=== PATIENT | male | born 1945 | race Two or more races ===

== ENCOUNTER 2023-07-19 07:08 | Day surgery (SDC) | payer OTHER ==
[2023-07-19] VITALS (8 sets, daily range): BP systolic 107–132; BP diastolic 76–90; PULSE 87–89; RESP 15–21; TEMP 98.3; O2SAT 93–98
[~2023-07-19] VITALS: Ht 172.7 cm; Wt 83.0 kg
[~2023-07-19 07:08] MED LIST: AMLO1TAB22 PO; CHOL50007 PO; FINA5TAB4 PO; LEVO50TA7 PO; LISI40TA16 PO; POM; SIMV5TAB14 PO; TRAZ-181 PO; VITA400T4 PO
[2023-07-19] MEDS ORDERED: IODIXANOL 320MG/ML 100ML BTL IV ONE ×2 (07:34→08:24)
[2023-07-19] MEDS ORDERED: LIDOCAINE 2%HCL (LOCAL ANESTH.) INJ 20ML MDV ONE (07:35)
[2023-07-19] MEDS ORDERED: ANGIOMAX 250 MG VIAL IV ONE (08:09)
[2023-07-19] MEDS ORDERED: VERAPAMIL 2.5MG/ML INJ 2ML VIAL IV ONE (08:09)
[2023-07-19] MEDS ORDERED: HEPARIN SODIUM (PORCINE) 5000 UNITS/ML 1ML VIAL ONE (08:09)
[2023-07-19] MEDS ORDERED: fentaNYL CITRATE 100 MCG/2 ML VL ONE (08:09)
[2023-07-19] MEDS ORDERED: MIDAZOLAM HCL 2MG/2ML 2ml VIAL (1mg/ml) ONE (08:10)
[2023-07-19] MEDS ORDERED: SODIUM CHL 0.9% 0 ML ONE (08:10)
== END 2023-07-19 11:22 | disposition home or self-care (01) ==
LOC: CATH 07:08
PROVIDERS: ATTEND Internal Medicine Cardiovascular Disease
DX: I25.10 Atherosclerotic heart disease of native coronary artery without angina pectoris (principal); I25.5 Ischemic cardiomyopathy; R94.39 Abnormal result of other cardiovascular function study; I27.20 Pulmonary hypertension, unspecified; R06.09 Other forms of dyspnea; E11.9 Type 2 diabetes mellitus without complications; I10 Essential (primary) hypertension; E78.5 Hyperlipidemia, unspecified; E03.9 Hypothyroidism, unspecified; I25.2 Old myocardial infarction; Z98.890 Other specified postprocedural states; Z79.01 Long term (current) use of anticoagulants; Z79.82 Long term (current) use of aspirin; Z79.84 Long term (current) use of oral hypoglycemic drugs
CPT/HCPCS: 93460; C1725; C1757; C1769; C1894; J1644; J2250; J3010; J7030; Q9967; 99152

== ENCOUNTER 2025-08-10 10:41 | Inpatient (IN) | payer OTHER ==
[~2025-08-10] VITALS: Ht 172.7 cm; Wt 85.0 kg
--- NOTE | 2025-08-10 11:29 | ECG ---
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
--- NOTE | 2025-08-10 12:11 | DVH ---
CLINICAL HISTORY: sob TECHNIQUE: Single view of the chest was obtained. COMPARISON: None FINDINGS: The heart size is mildly enlarged with pulmonary vascular congestion. There are small bilateral pleural effusions. There is no dense consolidation. Surgical clips project over the upper abdomen. IMPRESSION: Pulmonary vascular congestion with small bilateral pleural effusions.
[2025-08-10 12:16] LABS: Hematocrit 45.3 % (41.0-53.0); Hemoglobin 14.8 g/dL (13.5-17.5); Mean Corpuscular Hemoglobin 29.6 pg (28.0-32.0); Mean Corpuscular Volume 90.6 fL (80.0-100.0)
[2025-08-10 12:18] LABS: Chloride 105 mmol/L (98-107); Potassium 4.6 mmol/L (3.5-5.1); Sodium 142 mmol/L (136-145)
[2025-08-10 12:19] LABS: Anion Gap 9 (5-15); Carbon Dioxide 28 mmol/L (20-31)
--- NOTE | 2025-08-10 12:19 | ED.PDOC ---
SOB-HPI HPI Comments 79 year old male presents to the ED with a chief compliant of shortness of breath onset today. Patient states he has been experiencing shortness of breath worsens with exertion since this morning. states patient was placed on Lasix about 2 weeks ago, has been complaint with medication, no improvement of bilateral leg swelling. This morning patient noticed BLE swelling has worsen as well as shortness of breath. Denies chest pain, dizziness, numbness/tingling, fever, chills, nausea, vomiting, diarrhea. No other symptoms or modifying factors present at this time. Chief Complaint: Shortness of Breath Time Seen by MD: 12:00 Reviewed notes: Medications, Allergies Information Source: Patient, Spouse Mode of Arrival: Ambulatory Severity: Moderate Timing: Days Duration: Since onset Context: At Rest PE Risk Factors: None History of: None Prehospital treatment: None Modifying Factors: Nothing Past Medical History PAST MEDICAL HISTORY: DM, DC Surgical History: Denies all surgeries Family History Family History: Reviewed,noncontributory to illness, No family hx of Cancer, No family hx of DM, No family hx of Heart roxane, No family hx of HTN, No family hx ofKidney roxane, No family hx of Liver roxane, No family hx of Lung roxane, No family hx of Stroke Social History Smoker: Non-Smoker Alcohol: Denies ETOH Use Drugs: Denies Drug Use Lives In: Home Constitutional: denies: chills, diaphoresis, fatigue, fever, malaise, sweats, weakness, others EENTM: denies: blurred vision, double vision, ear bleeding, ear discharge, ear drainage, ear pain, ear ringing, eye pain, eye redness, hearing loss, mouth pain, mouth swelling, nasal discharge, nose bleeding, nose congestion, nose pain, photophobia, tearing, throat pain, throat swelling, voice changes, others Respiratory: reports: shortness of breath; denies: cough, hemoptysis, orthopnea, SOB at rest, SOB with excertion, stridor, wheezing, others Cardiovascular: denies: chest pain, dizzy spells, diaphoresis, Dyspnea on exertion, edema, irregular heart beat, left arm pain, lightheadedness, palpit ations, PND, syncope, others Gastrointestinal: denies: abdomen distended, abdominal pain, blood streaked b owels, constipated, diarrhea, dysphagia, difficulty swallowing, hematemesis, melena, nausea, poor appetite, poor fluid intake, rectal bleeding, rectal pain, vomiting, others Genitourinary: denies: burning, dysuria, flank pain, frequency, hematuria, incontinence, penile discharge, penile sore, pain, testicle pain, testicle swelling, urgency, others Neurological: denies: dizziness, fainting, headache, left sided numbness, left sided weakness, numbness, paresthesia, pre-existing deficit, right sided numbness, right sided weakness, seizure, speech problems, tingling, tremors, weakness, others Musculoskeletal: reports: others (BLE swelling); denies: back pain, gout, joint pain, joint swelling, muscle pain, muscle stiffness, neck pain Integumetry: denies: bruises, change in color, change in hair/nails, dryness, laceration, lesions, lumps, rash, wounds, others Allergic/Immunocompromised: denies: Difficulty Healing, Frequent Infections, Hives, Itching, others Hematologic/Lymphatic: denies: anemia, blood clots, easy bleeding, easy bruising, swollen glands, others Endocrine: denies: excessive hunger, excessive sweating, excessive thirst, excessive urination, flushing, intolerance to cold, intolerance to heat, unexplained weight gain, unexplained weight loss, others Psychiatric: denies: anxiety, bipolar disorder, depression, hopeless, panic disorder, schizophrenia, sleepless, suicidal, others All Other Systems: Reviewed and Negative Physical Exam General Appearance: Moderate Distress, Normal HEENT: Normal ENT Inspection, Pharynx Normal, TMs Normal Neck: Full Range of Motion, Non-Tender, Normal, Normal Inspection Respiratory: Accessory Muscle Use, Chest Non-Tender, Respiratory Distress, Rhonchi Cardiovascular: No Edema, No JVD, No Murmur, No Gallop, Normal Peripheral Pulses, Regular Rate/Rhythm Breast Exam: Deferred Gastrointestinal: No Organomegaly, Non Tender, No Pulsatile Mass, Normal Bowel Sounds, Soft Genitalia: Deferred Pelvic: Deferred Rectal: Deferred Extremities: No calf tenderness, Normal capillary refill, Pedal edema, Swelling (Bilateral lower extremity) Musculoskeletal : Apperance: Normal 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 Was a procedure done?: No Differential Dx Differential Diagnosis: Anxiety, Asthma, Bronchitis X-Ray, Labs, Meds, VS Vital Signs Date Time Temp Pulse Resp B/P (MAP) Pulse Ox O2 Delivery O2 Flow Rate FiO2 08/10/25 13:44 98.1 60 16 101/78 (86) 96 98.1 08/10/25 12:19 109 08/10/25 11:14 98.0 97 20 115/74 (88) 95 98.0 08/10/25 10:54 109 08/10/25 10:45 119 18 129/96 87 Lab Test 08/10/25 12:50 08/10/25 11:40 Range/Units Troponin I High Sensitivity 25 25 </=54 ng/L White Blood Count 7.6 4.4-10.8 10^3/uL Red Blood Count 5.00 4.5-5.90 10^6/uL Hemoglobin 14.8 13.5-17.5 g/dL Hematocrit 45.3 41.0-53.0 % Mean Corpuscular Volume 90.6 80.0-100.0 fL Mean Corpuscular Hemoglobin 29.6 28.0-32.0 pg Mean Corpuscular Hemoglobin Concent 32.7 32.0-36.0 g/dL Red Cell Distribution Width 15.8 H 11.8-14.3 % Platelet Count 118 L 140-450 10^3/uL Mean Platelet Volume 10.7 6.9-10.8 fL Neutrophils (%) (Auto) 37.0-80.0 % Lymphocytes (%) (Auto) 10.0-50.0 % Monocytes (%) (Auto) 0.0-12.0 % Eosinophils (%) (Auto) 0.0-7.0 % Basophils (%) (Auto) 0.0-2.0 % Neutrophils # (Auto) 1.6-8.6 10 ^3/uL Lymphocytes # (Auto) 0.4-5.4 10 ^3/uL Monocytes # (Auto) 0-1.3 10 ^3/uL Differential Total Cells Counted 100.0 100 Neutrophils % (Manual) 57 37.0-80.0 Band Neutrophils % (Manual) 0 Lymphocytes % (Manual) 9 L 10.0-50.0 Monocytes % (Manual) 6 0-12 Eosinophils % (Manual) 28 H 0-7 Basophils % (Manual) 0 0.0-2.0 Metamyelocytes % (manual) 0 Myelocytes % (Manual) 0 Promyelocytes % (Manual) 0 Blast Cells % (Manual) 0 Reactive Lymphocytes 0 Platelet Estimate Decreased Large Platelets Few Poikilocytosis (manual) Slight Sodium Level 142 136-145 mmol/L Potassium Level 4.6 3.5-5.1 mmol/L Chloride Level 105 98-107 mmol/L Carbon Dioxide Level 28 20-31 mmol/L Anion Gap 9 5-15 Blood Urea Nitrogen 35 H 9-23 mg/dL Creatinine 1.43 H 0.700-1.30 mg/dL Glomerular Filtration Rate Calc 50 >90 mL/min BUN/Creatinine Ratio 24.5 H 10.0-20.0 Serum Glucose 115 H 74-106 mg/dL Calcium Level 9.5 8.7-10.4 mg/dL B-Type Natriuretic Peptide 1153.22 0-100 pg/mL [place] [address] Ph: [phone] DIAGNOSTIC IMAGING Diagnostic Imaging Report : [id number] Signed PATIENT: EMANI JARAMILLO ACCT: [id number] UNIT: [id number] : 1945 LOC: ER ROOM / BED: / AGE / SEX: 79 / M ADM STATUS: REG ER SERVICE 1127 ORDERING PHYSICIAN: BEKAH PALACIO MD PROCEDURE(s): CXRP - CHEST PORTABLE REASON: sob ORDER NUMBER(s): [id number], ACCESSION NUMBER(s): [id number] CLINICAL HISTORY: sob TECHNIQUE: Single view of the chest was obtained. COMPARISON: None FINDINGS: The heart size is mildly enlarged with pulmonary vascular congestion. There are small bilateral pleural effusions. There is no dense consolidation. Surgical clips project over the upper abdomen. IMPRESSION: Pulmonary vascular congestion with small bilateral pleural effusions. ATED BY: LEE HILARIO MD DICTATED DATE/TIME: 08/10/25 120 SIGNED BY: LEE HILARIO MD SIGNED DATE/TIME: 08/10/25 1209 CC: Patient alert. Complaining of extremity swelling. Vitals stable. Answering questions. Placed on oxygen. CHF. Chest x-ray confirmed. Was given Lasix. BNP elevated. Chronic kidney function. WBC within normal limits. Explained to the family that he is critical. Continue monitoring. Time of 1ST Reevaluation: 12:30 Reevaluation 1ST: Unchanged Patient Education/Counseling: Diagnosis, Treatment, Prognosis Family Education/Counseling: Diagnosis, Treatment, Prognosis SEPSIS Sepsis Screen Date sepsis recognized/suspect: Aug 10, 2025 Time Sepsis recognized/suspect: 1044 Recent Procedure: No On Antibiotic Therapy: No Respiratory Rate >20: No Heart Rate >90: Yes Temp<36 C (96.8 F) or >38.3 C: No SBP <90 or MAP <65 mmHG: No New Acute Mental Status Change: No Is the patient on CPAP, BIPAP,: No Physician Orders Electrocardigram (08/10/25 11:19) Electrocardigram (08/10/25 12:19) Electrocardigram (08/10/25 14:19) Chest Portable (08/10/25 11:27) Vital Signs Date Time Temp Pulse Resp B/P (MAP) Pulse Ox O2 Delivery O2 Flow Rate FiO2 08/10/25 13:44 98.1 60 16 101/78 (86) 96 98.1 08/10/25 12:19 109 08/10/25 11:14 98.0 97 20 115/74 (88) 95 98.0 08/10/25 10:54 109 08/10/25 10:45 119 18 129/96 87 Laboratory Tests Test 08/10/25 11:40 White Blood Count 7.6 10^3/uL (4.4-10.8) Departure 1 Departure Time of Disposition: 13:41 Impression: Primary Impression: Congestive heart failure Qualified Codes: I50.43 - Acute on chronic combined systolic (congestive) and diastolic (congestive) heart failure Additional Impressions: Chronic kidney disease Qualified Codes: N18.9 - Chronic kidney disease, unspecified Acute respiratory failure Qualified Codes: J96.01 - Acute respiratory failure with hypoxia Disposition: ADMITTED INPATIENT Admit to: Med Surg Condition: Guarded Critical Care Note Critical Care Time?: Yes (90 min-critical care time only) Stability Stability form required: No Heart Score Heart Score: Heart Score Response (Comments) Value History Slightly Suspicious 0 EKG Normal 0 Age >65 2 Risk Factors >3 or Hx ASHD 2 Troponin Normal limit 0 Total 4 I personally scribed for BEKAH PALACIO MD ([email or web address]) on 08/10/25 at 12:19. Electronically submitted by Bette Alcazar ([email or web address]). I personally scribed for BEKAH PALACIO MD ([email or web address]) on 08/10/25 at 12:31. Electronically submitted by Bette Alcazar ([email or web address]). BEKAH PALACIO MD Aug 10, 2025 12:19
[2025-08-10 12:20] LABS: Calcium 9.5 mg/dL (8.7-10.4)
[2025-08-10 12:25] LABS: BUN/Creatinine Ratio 24.5 (10.0-20.0)
[2025-08-10 12:29] LABS: Blood Urea Nitrogen 35 mg/dL (9-23); Glucose 115 mg/dL (74-106)
[2025-08-10 12:42] LABS: Total Cells Counted 100.0 (100)
--- NOTE | 2025-08-10 13:58 | DVHHP2 ---
History of Present Illness Reason for Visit: Leg swelling with shortness for breath History of Present Illness Patient is a poor historian. 79 year old male presents to the ED with a chief compliant of shortness of breath onset today. Patient states he has been experiencing shortness of breath worsens with exertion since this morning. states patient was placed on Lasix about 2 weeks ago, has been complaint with medication, no improvement of bilateral leg swelling. This morning patient noticed BLE swelling has worsen as well as shortness of breath. Denies chest pain, dizziness, numbness/tingling, fever, chills, nausea, vomiting, diarrhea. No other symptoms or modifying factors present at this time. Past Medical History Diabetes mellitus type 2, history of CO, history of CHF Past Surgical History: None Family History: Hypertension Smoke: No ALCOHOL: rare Lives: with Family Review of Systems Review of Systems Denies any chest pain. No headache dizziness or lightheadedness. No fevers chills or sweats. Other review of systems reviewed normal. Allergies: Coded Allergies: Codeine (Verified Allergy, Unknown, UNKNOWN, 07/17/23) Uncoded Allergies: PCN (Allergy, Unknown, UNKNOWN, 07/17/23) Medications Current Medications Medications Dose Ordered Sig/Martha Route Start Time Stop Time Status Last Admin Dose Admin Nitroglycerin 0.4 mg Q5MINP PRN SL 08/10/25 14:00 UNV Morphine Sulfate 2 mg Q30M PRN IV 08/10/25 14:00 UNV Exam Vital Signs Vital Signs Date Time Temp Pulse Resp B/P (MAP) Pulse Ox O2 Delivery O2 Flow Rate FiO2 08/10/25 13:44 98.1 60 16 101/78 (86) 96 98.1 Exam Elderly gentleman using accessory muscles to breathe. Alert awake oriented to place and person. However he is a poor historian and unable to give much reliable history. HEENT neck supple no JVD. Heart regular rate and rhythm S1- S2. Lungs fair air movement without any wheezing but rhonchi in the bases. Chest tube will expansion. Abdomen soft nontender positive bowel sounds. Ex tremities 3+ edema noted. Positive pulses. Labs/Xrays Labs Test 08/10/25 12:50 08/10/25 11:40 Range/Units Troponin I High Sensitivity 25 </=54 ng/L White Blood Count 7.6 4.4-10.8 10^3/uL Red Blood Count 5.00 4.5-5.90 10^6/uL Hemoglobin 14.8 13.5-17.5 g/dL Hematocrit 45.3 41.0-53.0 % Mean Corpuscular Volume 90.6 80.0-100.0 fL Mean Corpuscular Hemoglobin 29.6 28.0-32.0 pg Mean Corpuscular Hemoglobin Concent 32.7 32.0-36.0 g/dL Red Cell Distribution Width 15.8 H 11.8-14.3 % Platelet Count 118 L 140-450 10^3/uL Mean Platelet Volume 10.7 6.9-10.8 fL Neutrophils (%) (Auto) 37.0-80.0 % Lymphocytes (%) (Auto) 10.0-50.0 % Monocytes (%) (Auto) 0.0-12.0 % Eosinophils (%) (Auto) 0.0-7.0 % Basophils (%) (Auto) 0.0-2.0 % Neutrophils # (Auto) 1.6-8.6 10 ^3/uL Lymphocytes # (Auto) 0.4-5.4 10 ^3/uL Monocytes # (Auto) 0-1.3 10 ^3/uL Differential Total Cells Counted 100.0 100 Neutrophils % (Manual) 57 37.0-80.0 Band Neutrophils % (Manual) 0 Lymphocytes % (Manual) 9 L 10.0-50.0 Monocytes % (Manual) 6 0-12 Eosinophils % (Manual) 28 H 0-7 Basophils % (Manual) 0 0.0-2.0 Metamyelocytes % (manual) 0 Myelocytes % (Manual) 0 Promyelocytes % (Manual) 0 Blast Cells % (Manual) 0 Reactive Lymphocytes 0 Platelet Estimate Decreased Large Platelets Few Poikilocytosis (manual) Slight Sodium Level 142 136-145 mmol/L Potassium Level 4.6 3.5-5.1 mmol/L Chloride Level 105 98-107 mmol/L Carbon Dioxide Level 28 20-31 mmol/L Anion Gap 9 5-15 Blood Urea Nitrogen 35 H 9-23 mg/dL Creatinine 1.43 H 0.700-1.30 mg/dL Glomerular Filtration Rate Calc 50 >90 mL/min BUN/Creatinine Ratio 24.5 H 10.0-20.0 Serum Glucose 115 H 74-106 mg/dL Calcium Level 9.5 8.7-10.4 mg/dL B-Type Natriuretic Peptide 1153.22 0-100 pg/mL SEPSIS Sepsis Screen Date sepsis recognized/suspect: Aug 10, 2025 Time Sepsis recognized/suspect: 1044 Recent Procedure: No On Antibiotic Therapy: No Respiratory Rate >20: No Heart Rate >90: Yes Temp<36 C (96.8 F) or >38.3 C: No SBP <90 or MAP <65 mmHG: No New Acute Mental Status Change: No Is the patient on CPAP, BIPAP,: No Physician Orders Electrocardigram (08/10/25 12:19) Electrocardigram (08/10/25 14:19) Chest Portable (08/10/25 11:27) Urinalysis (08/10/25 11:27) Troponin-I Hs (08/10/25 14:27) Bilat Lower Dvt (08/10/25 13:52) * Cardiology Consult (08/10/25 13:52) Cardiac Diet-2gna,Lofat,Lochol (08/10/25 Dinner) Echo 2d Mode Cardiac Dop (08/10/25 13:52) Troponin-I Hs (08/10/25 13:52) Insert Arshad Catheter QSHIFT (08/10/25 13:52) Strict I & O QSHIFT (08/10/25 13:52) Admit (08/10/25 13:52) Troponin-I Hs (08/10/25 16:52) Nitroglycerin Sublingual (Ntrostat Subli (08/10/25 14:00) Morphine Sulfate Injection (08/10/25 14:00) Stat Ekg For Chest Pain (08/10/25 13:52) Notify Md Of Changes From Base (08/10/25 13:52) Pot Fluxer For 24 Hours (08/10/25 13:52) Emergency Dysrhythmia Protocol (08/10/25 13:52) Rhythm Strips Once Every Shift (08/10/25 13:52) Oxygen By Nasal Cannula (08/10/25 13:52) Vital Signs Date Time Temp Pulse Resp B/P (MAP) Pulse Ox O2 Delivery O2 Flow Rate FiO2 08/10/25 13:44 98.1 60 16 101/78 (86) 96 98.1 08/10/25 12:19 109 08/10/25 11:14 98.0 97 20 115/74 (88) 95 98.0 08/10/25 10:54 109 08/10/25 10:45 119 18 129/96 87 Laboratory Tests Test 08/10/25 11:40 White Blood Count 7.6 10^3/uL (4.4-10.8) Assessment/Plan Assessment/Plan Acute exacerbation of underlying heart failure with a diastolic dysfunction We will admit him to hospital for IV diuresis and cardiac evaluation. 2D echocardiogram. CHF education. Social Service consultation for safety evaluation at home. Otherwise continue rest of supportive care and treatment and further clinical management per clinical course and recommendations from the student union consultant. Plan discussed with: Patient, Other My Orders Orders - ALIZA HICKS MD Procedure Category Date Status Time Bilat Lower Dvt US 08/10/25 Logged 13:52 * Cardiology Consult CONS 08/10/25 Transmitted 13:52 Cardiac DIET 08/10/25 Transmitted Diet-2gna,Lofat,Lochol Dinner Echo 2d Mode Cardiac US 08/10/25 Logged DOP 13:52 Troponin-I Hs LAB 08/10/25 Logged 13:52 Insert Arshad Catheter JANI 08/10/25 In Process 13:52 Strict I & O JANI 08/10/25 In Process 13:52 Admit ADMIT 08/10/25 Transmitted 13:52 Troponin-I Hs LAB 08/10/25 Logged 16:52 Nitroglycerin PHA 08/10/25 Logged Sublingual (Ntrostat 14:00 Morphine Sulfate PHA 08/10/25 Logged Injection 14:00 Stat Ekg For Chest JANI 08/10/25 In Process Pain 13:52 Notify Of Changes JANI 08/10/25 In Process From Base 13:52 Pot Fluxer For JANI 08/10/25 In Process 24 Hours 13:52 Emergency Dysrhythmia JANI 08/10/25 In Process Protocol 13:52 Rhythm Strips Once JANI 08/10/25 In Process Every Shift 13:52 Oxygen By Nasal RT 08/10/25 Transmitted Cannula 13:52 Problem List: (1) Acute respiratory failure (2) Congestive heart failure (3) Chronic kidney disease ALIZA HICKS MD Aug 10, 2025 13:58
[2025-08-10] MEDS ORDERED: ONDANSETRON HCL 4 MG/2 ML VIAL IV PRN (14:00)
[2025-08-10] MEDS ORDERED: ACETAMINOPHEN 325 MG TAB PO PRN (14:00)
[2025-08-10] MEDS ORDERED: NITROGLYCERIN 0.4 MG SL TAB SL PRN (14:00)
[2025-08-10] MEDS ORDERED: MORPHINE SULFATE INJ 2 MG/ml SYRG IV PRN (14:00)
[2025-08-10 14:46] LABS: Urine Protein, UAD TRACE (Negative)
--- NOTE | 2025-08-10 14:46 | DVH ---
Bilateral lower extremity venous duplex Clinical History: leg swelling Comparison: None Findings: Duplex Doppler evaluation of the deep venous systems of both lower extremities from the common femoral veins to the popliteal veins including color Doppler and spectral/pulsed waveform analysis was performed. RIGHT SIDE: The common femoral vein demonstrates appropriate compressibility and waveform variability. There is compressibility/patency of the great saphenous vein at the proximal thigh. The femoral vein demonstrates appropriate compressibility and waveform variability. The deep femoral vein demonstrates appropriate compressibility and waveform variability. The popliteal vein demonstrates appropriate compressibility and waveform variability. There is normal compressibility at the tibioperoneal trunk. LEFT SIDE: The common femoral vein demonstrates appropriate compressibility and waveform variability. There is compressibility/patency of the great saphenous vein at the proximal thigh. The femoral vein demonstrates appropriate compressibility and waveform variability. The deep femoral vein demonstrates appropriate compressibility and waveform variability. The popliteal vein demonstrates appropriate compressibility and waveform variability. There is normal compressibility at the tibioperoneal trunk. IMPRESSION: No right or left femoropopliteal venous thrombosis. If clinical concern/symptoms persist or worsen, short-interval follow-up study is suggested. END IMPRESSION:
[2025-08-10] MEDS: FUROSEMIDE 40 MG/4 ML VIAL IV ONE (17:54)
[2025-08-10] MEDS: FUROSEMIDE 40 MG/4 ML VIAL IV SCH (17:54)
[2025-08-10 22:38] VITALS: BP 135/82; PULSE 99; RESP 16; O2SAT 86; O2SAT 87
[2025-08-10] MEDS: POTASSIUM CHL 20 Meq TABLET PO SCH (23:19)
[2025-08-11] VITALS (8 sets, daily range): BP systolic 102–145; BP diastolic 69–83; PULSE 81–121; RESP 17–22; TEMP 97.3–97.8; O2SAT 90–97
[2025-08-11 05:08] LABS: Hematocrit 44.7 % (41.0-53.0); Hemoglobin 14.5 g/dL (13.5-17.5); Mean Corpuscular Hemoglobin 29.6 pg (28.0-32.0); Mean Corpuscular Volume 91.3 fL (80.0-100.0)
[2025-08-11 05:16] LABS: INR 1.36 (0.9-1.15); Partial Thromboplastin Time 36.4 SEC (24.5-34.5); Prothrombin Time 14.0 sec (9.3-11.8)
[2025-08-11 05:18] LABS: Potassium 4.8 mmol/L (3.5-5.1); Sodium 145 mmol/L (136-145)
[2025-08-11 05:19] LABS: Anion Gap 7 (5-15); Calcium 9.1 mg/dL (8.7-10.4); Carbon Dioxide 30 mmol/L (20-31)
[2025-08-11 05:22] LABS: Chloride 108 mmol/L (98-107)
[2025-08-11 05:24] LABS: BUN/Creatinine Ratio 22.8 (10.0-20.0); Glucose 86 mg/dL (74-106)
[2025-08-11 05:29] LABS: Blood Urea Nitrogen 34 mg/dL (9-23)
[2025-08-11] MEDS: LEVOTHYROXINE SODIUM 50 MCG TAB PO SCH (05:53)
[2025-08-11 06:34] LABS: Ovalocytes FEW; Total Cells Counted 100.0 (100)
--- NOTE | 2025-08-11 07:58 | DVHINCON2 ---
Date of service: Aug 11, 2025 History of Present Illness 79 yo M with hx of NICM, Ef 35% per notes, hx of pulm htn ,admiitted for leg edema and sob. Past Medical History reviewedd Family History: Diabetes mellitus G8 FATHER FH: cancer G8 MOTHER Allergies: Coded Allergies: Codeine (Verified Allergy, Unknown, UNKNOWN, 07/17/23) Uncoded Allergies: PCN (Allergy, Unknown, UNKNOWN, 07/17/23) Home Meds Reported Medications Patients Own Medication (PATIENTS OWN MEDICATION) ., for WEIGHT LOSS PTS OWN MED-OBTAIN FROM PT AND SEND TO RX DRUG: FREQ: RX# EXP: DATE DISP: TECH: RPH: 07/17/23 Levothyroxine Sodium (Levothyroxine Sodium) 50 Mcg Tab, 50 MCG PO QAM for LOW THYROID for 30 Days, MCG 07/17/23 Alpha Tocopheryl Acid Succinat (VITAMIN E) 400 Unit Tab, 400 UNIT PO DAILY for SUPPLEMENT, TAB 07/17/23 Cholecalciferol (VITAMIN D3) 5,000 Unit Cap, 5000 UNIT PO DAILY for SUPPLEMENT, CAP 07/17/23 Trazodone HCl (Trazodone Hydrochloride) 50 Mg Tab, 25 MG PO DAILY for DEPRESSION, TAB 07/17/23 Simvastatin (Simvastatin) 5 Mg Tab, 5 MG PO QHSP PRN for CHOLESTEROL, TAB 07/17/23 Lisinopril (Lisinopril) 40 Mg Tab, 1 TAB PO DAILY for HTN, #30 TAB 5 Refills 07/17/23 Finasteride (Finasteride) 5 Mg Tab, 5 MG PO DAILY for BPH, MG 07/17/23 Amlodipine Besylate (Amlodipine Besylate) 5 Mg Tab, 10 MG PO DAILY for HTN, MG 07/17/23 Current Medications Current Medications Medications (Trade) Dose Ordered Sig/Martha Route PRN Reason Start Time Stop Time Status Last Admin Nitroglycerin (Ntrostat Sublingual) 0.4 mg Q5MINP PRN SL FOR CHEST PAIN 08/10/25 14:00 Morphine Sulfate 2 mg Q30M PRN IV FOR CHEST PAIN 08/10/25 14:00 Hold Furosemide (Lasix Injection) 40 mg TID IV 08/10/25 14:00 08/11/25 05:53 Potassium Chloride (Klor-Con Tablet) 20 meq BID PO 08/10/25 22:00 08/10/25 23:19 Ondansetron HCl (Zofran) 4 mg Q6HPRN PRN IV NAUSEA / VOMITING 08/10/25 14:00 Acetaminophen (Tylenol Tablet) 650 mg Q4HP PRN PO MODERATE PAIN (4-6 PAIN SCALE) 08/10/25 14:00 Enoxaparin Sodium (Lovenox) 40 mg DAILY SC 08/11/25 10:00 Finasteride (Proscar Tablet) 5 mg DAILY PO 08/11/25 10:00 Levothyroxine Sodium (Synthroid Tablet) 50 mcg QAM PO 08/11/25 07:00 08/11/25 05:53 Trazodone HCl (Desyrel) 25 mg DAILY PO 08/11/25 10:00 Review of Systems 10 pt ros otherwise negative +sob +leg edema Vital Signs Vital Signs Date Time Temp Pulse Resp B/P (MAP) Pulse Ox O2 Delivery O2 Flow Rate FiO2 08/11/25 05:53 120/82 08/11/25 05:00 97.4 94 17 95 97.4 08/10/25 22:38 Room Air* 0 21 Physical Exam nad s1 s2 rrr diffuse rhonchi abd soft nt/dn +2 leg edema Labs/Diagnostic Data Labs Test 08/11/25 04:43 08/10/25 14:36 08/10/25 14:20 08/10/25 11:40 Range/Units White Blood Count 7.1 4.4-10.8 10^3/uL Red Blood Count 4.89 4.5-5.90 10^6/uL Hemoglobin 14.5 13.5-17.5 g/dL Hematocrit 44.7 41.0-53.0 % Mean Corpuscular Volume 91.3 80.0-100.0 fL Mean Corpuscular Hemoglobin 29.6 28.0-32.0 pg Mean Corpuscular Hemoglobin Concent 32.5 32.0-36.0 g/dL Red Cell Distribution Width 16.1 H 11.8-14.3 % Platelet Count 104 L 140-450 10^3/uL Mean Platelet Volume 10.5 6.9-10.8 fL Neutrophils (%) (Auto) 37.0-80.0 % Lymphocytes (%) (Auto) 10.0-50.0 % Monocytes (%) (Auto) 0.0-12.0 % Basophils (%) (Auto) 0.0-2.0 % Neutrophils # (Auto) 1.6-8.6 10 ^3/uL Lymphocytes # (Auto) 0.4-5.4 10 ^3/uL Monocytes # (Auto) 0-1.3 10 ^3/uL Differential Total Cells Counted 100.0 100 Neutrophils % (Manual) 49 37.0-80.0 Band Neutrophils % (Manual) 0 Lymphocytes % (Manual) 25 10.0-50.0 Monocytes % (Manual) 2 0-12 Eosinophils % (Manual) 24 H 0-7 Basophils % (Manual) 0 0.0-2.0 Metamyelocytes % (manual) 0 Myelocytes % (Manual) 0 Promyelocytes % (Manual) 0 Blast Cells % (Manual) 0 Reactive Lymphocytes 0 Platelet Estimate Decreased Ovalocytes Few Prothrombin Time 14.0 H 9.3-11.8 sec Prothrombin Time INR 1.36 H 0.9-1.15 Activated Partial Thromboplast Time 36.4 H 24.5-34.5 SEC Sodium Level 145 136-145 mmol/L Potassium Level 4.8 3.5-5.1 mmol/L Chloride Level 108 H 98-107 mmol/L Carbon Dioxide Level 30 20-31 mmol/L Anion Gap 7 5-15 Blood Urea Nitrogen 34 H 9-23 mg/dL Creatinine 1.49 H 0.700-1.30 mg/dL Glomerular Filtration Rate Calc 47 >90 mL/min BUN/Creatinine Ratio 22.8 H 10.0-20.0 Serum Glucose 86 74-106 mg/dL Calcium Level 9.1 8.7-10.4 mg/dL Troponin I High Sensitivity 25 </=54 ng/L Urine Color Light-yellow Yellow Urine Clarity Clear Clear Urine pH 5.5 5.0-9.0 Urine Specific [place] 1.011 1.001-1.035 Urine Protein Trace H Negative Urine Ketones Negative Negative Urine Blood Negative Negative /uL Urine Nitrite Negative Negative Urine Bilirubin Negative Negative Urine Urobilinogen Normal Negative mg/dL Urine Leukocyte Esterase Negative Negative /uL Urine RBC <1 0 - 3 /hpf Urine Microscopic WBC < 1 0-3 /HPF Urine Squamous Epithelial Cells Few <5 /hpf Urine Bacteria None seen None Seen /hpf Urine Mucus Few None Seen Urine Glucose Normal Normal mg/dL Eosinophils (%) (Auto) 0.0-7.0 % Large Platelets Few Poikilocytosis (manual) Slight B-Type Natriuretic Peptide 1153.22 0-100 pg/mL Assessment acute on chronic nyha class III hf NICM pulm htn moderate leg edema obesity Plan/Recommendation cont iv lasix bid start GDMT for HF low ef negative cath 2022 pulm htn --defer to primary or specialist Plan discussed with: Patient IRLANDA HAMPTON MD Aug 11, 2025 07:58
[2025-08-11] MEDS: ENOXAPARIN SOD 40 MG/0.4 ML SYRINGE SC SCH (09:59)
[2025-08-11] MEDS: EMPAGLIFLOZIN 10 MG TAB PO SCH (10:00)
[2025-08-11] MEDS: METOPROLOL SUCCINATE XL 50 MG TAB PO SCH (10:02)
[2025-08-11] MEDS: FINASTERIDE 5 MG TAB PO SCH (10:03)
[2025-08-11] MEDS: SPIRONOLACTONE 25 MG TAB PO SCH (10:03)
--- NOTE | 2025-08-11 13:13 | DVHPN2 ---
Progress Note - Dictate Date Seen: Aug 11, 2025 Medical Necessity Reason Pt with a Central, PICC or Fol: No Subjective In bed comfortable. Diuresed overnight. Evaluated by Cardiology and noted to have EF around 35%. Patient's son as well as niece are at bedside. Says his leg swelling is improved. vital signs Vital Sign Date Time Temp Pulse Resp B/P (MAP) Pulse Ox O2 Delivery O2 Flow Rate FiO2 08/11/25 12:52 97.6 84 18 105/71 (82) 96 97.6 08/10/25 22:38 Room Air* 0 21 Total Intake and Output 08/10/25 08/10/25 08/11/25 15:00 23:00 07:00 Intake Total 250 ml Output Total 800 ml Balance -550 ml medications Current Medications Medications Dose Ordered Sig/Martha Route Start Time Stop Time Status Last Admin Dose Admin Nitroglycerin 0.4 mg Q5MINP PRN SL 08/10/25 14:00 Morphine Sulfate 2 mg Q30M PRN IV 08/10/25 14:00 Hold Furosemide 40 mg TID IV 08/10/25 14:00 08/11/25 05:53 40 MG Ondansetron HCl 4 mg Q6HPRN PRN IV 08/10/25 14:00 Acetaminophen 650 mg Q4HP PRN PO 08/10/25 14:00 Enoxaparin Sodium 40 mg DAILY SC 08/11/25 10:00 08/11/25 09:59 40 MG Finasteride 5 mg DAILY PO 08/11/25 10:00 08/11/25 10:03 5 MG Levothyroxine Sodium 50 mcg QAM PO 08/11/25 07:00 08/11/25 05:53 50 MCG Trazodone HCl 25 mg DAILY PO 08/11/25 10:00 08/11/25 10:02 25 MG Empaglifozin 10 mg DAILY PO 08/11/25 10:00 08/11/25 10:00 10 MG Metoprolol Succinate 25 mg DAILY PO 08/11/25 10:00 08/11/25 10:02 25 MG Spironolactone 25 mg DAILY PO 08/11/25 10:00 08/11/25 10:03 25 MG objective HEENT neck supple no JVD. Heart regular rate and rhythm. Lungs fair air movement without wheezing. Abdomen soft positive bowel sounds. Extremities improved edema. laboratory and microbiology Laboratory Tests 08/11/25 04:43 Test 08/11/25 04:43 Range/Units Serum Glucose 86 74-106 mg/dL Assessment/Plan Continue current diuresis. Follow the results of echocardiogram. CHF education. 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 Further clinical management per clinical course. Problems(with codes): (1) Acute respiratory failure (2) Congestive heart failure (3) Chronic kidney disease Plan discussed with: Patient, Toi ALIZA HICKS MD Aug 11, 2025 13:13
[2025-08-12] VITALS (8 sets, daily range): BP systolic 92–117; BP diastolic 54–75; PULSE 74–94; RESP 15–24; TEMP 97.4–98.2; O2SAT 90–98
[2025-08-12 06:13] LABS: Calcium 9.5 mg/dL (8.7-10.4); Chloride 104 mmol/L (98-107); Potassium 4.4 mmol/L (3.5-5.1); Sodium 144 mmol/L (136-145)
[2025-08-12 06:14] LABS: Anion Gap 10 (5-15); Carbon Dioxide 30 mmol/L (20-31)
[2025-08-12 06:19] LABS: BUN/Creatinine Ratio 21.7 (10.0-20.0)
[2025-08-12 06:34] LABS: Blood Urea Nitrogen 34 mg/dL (9-23); Glucose 67 mg/dL (74-106)
[2025-08-12] MEDS ORDERED: CARV3.1240 PO (14:28)
[2025-08-12] MEDS ORDERED: EMPA1TAB PO (14:28)
[2025-08-12] MEDS ORDERED: FURO40TA4 PO (14:28)
[2025-08-12] MEDS ORDERED: SPIR25TA PO (14:28)
--- NOTE | 2025-08-12 14:32 | DVHPN2 ---
Progress Note - Dictate Date Seen: Aug 12, 2025 Medical Necessity Reason Pt with a Central, PICC or Fol: No Subjective In bed comfortable. Family at bedside. Diuresed more than 2 L in the last 24 hours. Blood pressure low normal range. Says he feels better. vital signs Vital Sign Date Time Temp Pulse Resp B/P (MAP) Pulse Ox O2 Delivery O2 Flow Rate FiO2 08/12/25 13:00 97.4 85 16 98/61 (73) 94 97.4 08/11/25 20:00 Nasal Cannula* 4 36 Total Intake and Output 08/11/25 08/11/25 08/12/25 15:00 23:00 07:00 Intake Total 325 ml 200 ml Output Total 300 ml 1200 ml 1700 ml Balance -300 ml -875 ml -1500 ml medications Current Medications Medications Dose Ordered Sig/Martha Route Start Time Stop Time Status Last Admin Dose Admin Nitroglycerin 0.4 mg Q5MINP PRN SL 08/10/25 14:00 Morphine Sulfate 2 mg Q30M PRN IV 08/10/25 14:00 Hold Ondansetron HCl 4 mg Q6HPRN PRN IV 08/10/25 14:00 Acetaminophen 650 mg Q4HP PRN PO 08/10/25 14:00 Enoxaparin Sodium 40 mg DAILY SC 08/11/25 10:00 08/12/25 09:47 40 MG Finasteride 5 mg DAILY PO 08/11/25 10:00 08/12/25 09:45 5 MG Levothyroxine Sodium 50 mcg QAM PO 08/11/25 07:00 08/12/25 06:15 50 MCG Trazodone HCl 25 mg DAILY PO 08/11/25 10:00 08/12/25 09:45 25 MG Empaglifozin 10 mg DAILY PO 08/11/25 10:00 08/12/25 09:46 10 MG Spironolactone 25 mg DAILY PO 08/11/25 10:00 08/12/25 09:46 25 MG Furosemide 40 mg BIDD PO 08/12/25 18:00 UNV objective HEENT neck supple no JVD. Heart regular rate and rhythm. Lungs fair air movement without wheezing. Abdomen soft positive bowel sounds. Extremities improved edema. laboratory and microbiology Laboratory Tests 08/12/25 05:02 08/11/25 04:43 Test 08/12/25 05:02 Range/Units Serum Glucose 67 L 74-106 mg/dL Assessment/Plan We will transition IV Lasix to oral Lasix given adequate diuresis with the low normal blood pressure. Start him on carvedilol for cardiomyopathy and continue other heart medications as he is on. Monitor him overnight. 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 Once again I have discussed the plan of care including his heart failure with the patient as well as family/son who is at bedside. They have verbalized understanding of care plan and agree with the discharge home for tomorrow. Plan discussed with: Patient, Son ALIZA HICKS MD Aug 12, 2025 14:32
--- NOTE | 2025-08-12 16:52 | DVHSR ---
APPROVED REPORT EXAM: Two-dimensional and M-mode echocardiogram with Doppler and color Doppler. Blood Pressure: 120/82 mmHg INDICATION Heart Failure RISK FACTORS Height: 5'8", Weight: 177 DIMENSIONS LVDd 5.0 (3.8-5.7cm) LA (2D) 4.9 (1.9-4.0cm) Aortic Root (2.0-3.7cm) LVDs 4.5 (2.5-4.0cm) LA (MM) (1.9-4.0cm) Aortic Cusp Exc (1.5-2.0cm) EF (%) 25.0 (55-70%) Rt. Atrium 4.1 (1.9-4.0cm) Asc. Aorta cm IVSd 0.7 (0.7-1.1cm) RV (D) (1.8-2.4cm) PWd 0.7 (0.7-1.1cm) Mitral Valve Mitral Mitral Stenosis E/A ratio 0.0 2D MVA cm2 Aortic Valve Aortic Valve Aortic Stenosis LVOT Diameter 2.2 (1.8-2.4cm) Doppler JEEVAN cm2 2D JEEVAN 1.57cm2 Pulmonic Valve V2 0.88m/s Tricuspid Valve TR Velocity 2.30m/s RVSP 24mmHg Other Information Quality : Technically LimitedPoor Rhythm : Technically limited study due to images taken on right side. Conclusion Technically difficult study with limited views LVEF severely reduced at 20-25%,global hypokinesis Right ventricle is moderately dilated. Moderately reduced function Right and left atrial moderate dilation. Aortic valve is calcified, likely mild to moderate arotic stenosis
[2025-08-12] MEDS: FUROSEMIDE 20 MG TAB PO SCH (18:00)
[2025-08-13] VITALS (8 sets, daily range): BP systolic 94–123; BP diastolic 58–75; PULSE 47–101; RESP 16–20; TEMP 97.5–98.2; O2SAT 93–97
[2025-08-13] MEDS: MELATONIN 5 MG TAB PO SCH (00:45)
--- NOTE | 2025-08-13 14:36 | DVHPN2 ---
Subjective Overnight events noted. Patient's little agitated with trazodone with a in a very oxygen. Currently O2 saturation 80% on room air. We will put back on oxygen. We will check CMP. 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 Medications Current Medications Medications Dose Ordered Sig/Martha Route Start Time Stop Time Status Last Admin Dose Admin Nitroglycerin 0.4 mg Q5MINP PRN SL 08/10/25 14:00 Morphine Sulfate 2 mg Q30M PRN IV 08/10/25 14:00 Hold Ondansetron HCl 4 mg Q6HPRN PRN IV 08/10/25 14:00 Acetaminophen 650 mg Q4HP PRN PO 08/10/25 14:00 Enoxaparin Sodium 40 mg DAILY SC 08/11/25 10:00 08/12/25 09:47 40 MG Finasteride 5 mg DAILY PO 08/11/25 10:00 08/13/25 10:54 5 MG Levothyroxine Sodium 50 mcg QAM PO 08/11/25 07:00 08/13/25 06:11 50 MCG Trazodone HCl 25 mg DAILY PO 08/11/25 10:00 08/13/25 10:55 25 MG Empaglifozin 10 mg DAILY PO 08/11/25 10:00 08/13/25 10:58 10 MG Spironolactone 25 mg DAILY PO 08/11/25 10:00 08/13/25 10:58 25 MG Furosemide 40 mg BIDD PO 08/12/25 18:00 08/13/25 06:11 40 MG Melatonin 5 mg HS PO 08/13/25 00:45 Laboratory Results Laboratory Tests 08/11/25 04:43 08/12/25 05:02 Urinalysis Test 08/10/25 14:20 Urine Color Light-yellow (Yellow) Urine Clarity Clear (Clear) Urine pH 5.5 (5.0-9.0) Urine Specific [place] 1.011 (1.001-1.035) Urine Protein Trace (Negative) H Urine Ketones Negative (Negative) Urine Blood Negative /uL (Negative) Urine Nitrite Negative (Negative) Urine Bilirubin Negative (Negative) Urine Urobilinogen Normal mg/dL (Negative) Urine Leukocyte Esterase Negative /uL (Negative) Urine RBC <1 /hpf (0 - 3) Urine Microscopic WBC < 1 /HPF (0-3) Urine Squamous Epithelial Cells Few /hpf (<5) Urine Bacteria None seen /hpf (None Seen) Urine Mucus Few (None Seen) Urine Glucose Normal mg/dL (Normal) Assessment/Plan Assessment/Plan 79-year-old male with a known history of nonischemic cardiomyopathy, pulmonary hypertension, who initially presented to the hospital with increasing shortness a breath found to have 1. Acute on chronic congestive heart failure exacerbation with systolic dysfunction 2. Cardiomyopathy with the EF of 35% 3. Nonischemic cardiomyopathy 4. Pulmonary hypertension 5. Bilateral leg edema 6. Agitation 7. Acute hypoxic respiratory failure secondary to acute CHF exacerbation -continue current diuretics check CMP, arrange home oxygen at 3 L by continuous nasal cannula. Plan discussed with: Patient, Spouse My Orders Orders - MAHSA RICH MD Procedure Category Date Status Time * Sys Dir CONS 08/13/25 Transmitted Consult Comprehensive LAB 08/13/25 Logged Metabolic Panel 14:29 Problem List: (1) Congestive heart failure (2) Chronic kidney disease Date of Service: Aug 13, 2025 Billing Provider: MAHSA RICH MD Common Visit Codes: NOT BILLABLE MAHSA RICH MD Aug 13, 2025 14:36
[2025-08-13 15:43] LABS: Alanine Aminotransferase 28 U/L (7-40); Albumin 4.1 g/dL (3.2-4.8); Alkaline Phosphatase 62 U/L (46-116); Anion Gap 9 (5-15); BUN/Creatinine Ratio 21.5 (10.0-20.0); Calcium 9.5 mg/dL (8.7-10.4); Chloride 101 mmol/L (98-107); Potassium 4.7 mmol/L (3.5-5.1); Sodium 142 mmol/L (136-145); Total Protein 7.2 g/dL (5.7-8.2)
[2025-08-13 15:44] LABS: Bilirubin, Total 0.7 mg/dL (0.2-1.0)
[2025-08-13 15:52] LABS: Carbon Dioxide 32 mmol/L (20-31)
[2025-08-13 15:53] LABS: Blood Urea Nitrogen 40 mg/dL (9-23); Glucose 115 mg/dL (74-106)
[2025-08-14] VITALS (9 sets, daily range): BP systolic 93–112; BP diastolic 49–77; PULSE 50–123; RESP 18–20; TEMP 97.5–98.1; O2SAT 89–98
[2025-08-14 14:11] LABS: Chloride 102 mmol/L (98-107); Potassium 5.0 mmol/L (3.5-5.1); Sodium 141 mmol/L (136-145)
[2025-08-14 14:12] LABS: Anion Gap 8 (5-15)
[2025-08-14 14:13] LABS: Calcium 9.3 mg/dL (8.7-10.4)
[2025-08-14 14:17] LABS: Carbon Dioxide 31 mmol/L (20-31)
[2025-08-14 14:18] LABS: BUN/Creatinine Ratio 23.7 (10.0-20.0)
[2025-08-14 14:33] LABS: Blood Urea Nitrogen 46 mg/dL (9-23); Glucose 140 mg/dL (74-106)
--- NOTE | 2025-08-14 15:30 | DVHINCON2 ---
Date of service: Aug 14, [address] Beatty Reason for Consultation Acute kidney injury History of Present Illness Patient is a 79-year-old male with past medical history significant for diabetes mellitus, hypertension, AFib and chronic systolic Congestive heart failure is admitted with shortness of breath. Hospital course was noted for worsening BUN and creatinine, Nephrology is consulted for acute kidney injury Past Medical History Diabetes mellitus, hypertension, chronic systolic Congestive heart failure, AFib Past Surgical History Patient denies Allergies: Coded Allergies: Codeine (Verified Allergy, Unknown, UNKNOWN, 07/17/23) Uncoded Allergies: PCN (Allergy, Unknown, UNKNOWN, 07/17/23) Home Meds Active Scripts Spironolactone (Aldactone) 25 Mg Tab, 1 TAB PO DAILY, #90 TAB 1 Refill Prov:ALIZA HICKS MD 08/12/25 Empagliflozin (Jardiance) 10 Mg Tab, 10 MG PO QPM, #60 TAB Prov:ALIZA HICKS MD 08/12/25 Furosemide (Furosemide) 40 Mg Tab, 1 TAB PO DAILY, #30 TAB 5 Refills Prov:ALIZA HICKS MD 08/12/25 Carvedilol (Carvedilol) 3.125 Mg Tab, 1 TAB PO BID, #60 TAB 3 Refills Prov:ALIZA HICKS MD 08/12/25 Reported Medications Patients Own Medication (PATIENTS OWN MEDICATION) ., for WEIGHT LOSS PTS OWN MED-OBTAIN FROM PT AND SEND TO RX DRUG: FREQ: RX# EXP: DATE DISP: TECH: RPH: 07/17/23 Levothyroxine Sodium (Levothyroxine Sodium) 50 Mcg Tab, 50 MCG PO QAM for LOW THYROID for 30 Days, MCG 07/17/23 Alpha Tocopheryl Acid Succinat (VITAMIN E) 400 Unit Tab, 400 UNIT PO DAILY for SUPPLEMENT, TAB 07/17/23 Cholecalciferol (VITAMIN D3) 5,000 Unit Cap, 5000 UNIT PO DAILY for SUPPLEMENT, CAP 07/17/23 Trazodone HCl (Trazodone Hydrochloride) 50 Mg Tab, 25 MG PO DAILY for DEPRESSION, TAB 07/17/23 Simvastatin (Simvastatin) 5 Mg Tab, 5 MG PO QHSP PRN for CHOLESTEROL, TAB 07/17/23 Lisinopril (Lisinopril) 40 Mg Tab, 1 TAB PO DAILY for HTN, #30 TAB 5 Refills 07/17/23 Finasteride (Finasteride) 5 Mg Tab, 5 MG PO DAILY for BPH, MG 07/17/23 Amlodipine Besylate (Amlodipine Besylate) 5 Mg Tab, 10 MG PO DAILY for HTN, MG 07/17/23 Current Medications Current Medications Medications (Trade) Dose Ordered Sig/Martha Route PRN Reason Start Time Stop Time Status Last Admin Heparin Sodium (Porcine) 5,000 units Q12HR SC 08/14/25 22:00 08/14/25 17:15 DC Dopamine HCl/ Dextrose 250 ml @ 6.263 mls/ hr Q24H IV 08/14/25 15:30 08/14/25 16:44 Enoxaparin Sodium (Lovenox) 80 mg BID SC 08/14/25 22:00 08/15/25 08:58 Metoprolol Tartrate (Lopressor Tablet) 12.5 mg BID PO 08/14/25 22:00 08/15/25 09:00 Family History: Diabetes mellitus G8 FATHER FH: cancer G8 MOTHER Review of Systems All 12 item review of systems reviewed with the patient nonsignificant except what is mentioned in the history of present illness H&P Exam Vital Signs/I&O Vital Sign Date Time Temp Pulse Resp B/P (MAP) Pulse Ox O2 Delivery O2 Flow Rate FiO2 08/15/25 09:00 98.1 110 18 96/67 (77) 95 98.1 08/14/25 20:00 Nasal Cannula* 5 40 Intake and Output 08/14/25 08/15/25 19:00 07:00 Intake Total 750 ml 375 ml Output Total 950 ml 1000 ml Balance -200 ml -625 ml Intake Oral 750 ml 300 ml IV Total 75 ml Output Urine Total 950 ml 1000 ml # Bowel Movements 1 Physical Exam Moderate respiratory distress Lungs clear to auscultation bilaterally Cardiac exam IRR GI bowel sounds are present normal Extremities no clubbing cyanosis or edema Neuro nonfocal Labs/Diagnostic Data Labs/Diagnostic Data Laboratory Tests Test 08/14/25 17:00 08/14/25 15:21 08/14/25 13:25 08/13/25 15:00 Range/Units Urine Color Light-yellow Yellow Urine Clarity Clear Clear Urine pH 5.0 5.0-9.0 Urine Specific [place] 1.012 1.001-1.035 Urine Protein Negative Negative Urine Ketones Negative Negative Urine Blood Negative Negative /uL Urine Nitrite Negative Negative Urine Bilirubin Negative Negative Urine Urobilinogen Normal Negative mg/dL Urine Leukocyte Esterase Negative Negative /uL Urine RBC <1 0 - 3 /hpf Urine Microscopic WBC 2 0-3 /HPF Urine Squamous Epithelial Cells None seen <5 /hpf Urine Bacteria None seen None Seen /hpf Urine Hyaline Casts Few 0 - 2 /lpf Urine Creatinine 85.33 30.0-125.0 mg/dL Urine Protein/Creatinine Ratio 0.14 Urine Sodium 31 L 40-220 mmol/L Urine Glucose 2+ H Normal mg/dL Urine Total Protein 11.8 1-14 mg/dL Vitamin D 25-Hydroxy 52.6 30.0-100 ng/mL Sodium Level 141 142 136-145 mmol/L Potassium Level 5.0 4.7 3.5-5.1 mmol/L Chloride Level 102 101 98-107 mmol/L Carbon Dioxide Level 31 32 H 20-31 mmol/L Anion Gap 8 9 5-15 Blood Urea Nitrogen 46 H 40 H 9-23 mg/dL Creatinine 1.94 H 1.86 H 0.700-1.30 mg/dL Glomerular Filtration Rate Calc 34 36 >90 mL/min BUN/Creatinine Ratio 23.7 H 21.5 H 10.0-20.0 Serum Glucose 140 H 115 H 74-106 mg/dL Calcium Level 9.3 9.5 8.7-10.4 mg/dL Phosphorus Level 4.2 2.4-5.1 mg/dL Magnesium Level 2.4 1.6-2.6 mg/dL B-Type Natriuretic Peptide 1215.90 0-100 pg/mL Parathyroid Hormone (Intact) 266.1 H 18.4-80.1 pg/mL Total Bilirubin 0.7 0.2-1.0 mg/dL Aspartate Amino Transferase (AST) 24 13-40 U/L Alanine Aminotransferase (ALT) 28 7-40 U/L Alkaline Phosphatase 62 46-116 U/L Total Protein 7.2 5.7-8.2 g/dL Albumin 4.1 3.2-4.8 g/dL Test 08/12/25 05:02 08/11/25 04:43 08/10/25 14:36 08/10/25 14:20 Range/Units Sodium Level 144 145 136-145 mmol/L Potassium Level 4.4 4.8 3.5-5.1 mmol/L Chloride Level 104 108 H 98-107 mmol/L Carbon Dioxide Level 30 30 20-31 mmol/L Anion Gap 10 7 5-15 Blood Urea Nitrogen 34 H 34 H 9-23 mg/dL Creatinine 1.57 H 1.49 H 0.700-1.30 mg/dL Glomerular Filtration Rate Calc 44 47 >90 mL/min BUN/Creatinine Ratio 21.7 H 22.8 H 10.0-20.0 Serum Glucose 67 L 86 74-106 mg/dL Calcium Level 9.5 9.1 8.7-10.4 mg/dL White Blood Count 7.1 4.4-10.8 10^3/uL Red Blood Count 4.89 4.5-5.90 10^6/uL Hemoglobin 14.5 13.5-17.5 g/dL Hematocrit 44.7 41.0-53.0 % Mean Corpuscular Volume 91.3 80.0-100.0 fL Mean Corpuscular Hemoglobin 29.6 28.0-32.0 pg Mean Corpuscular Hemoglobin Concent 32.5 32.0-36.0 g/dL Red Cell Distribution Width 16.1 H 11.8-14.3 % Platelet Count 104 L 140-450 10^3/uL Mean Platelet Volume 10.5 6.9-10.8 fL Neutrophils (%) (Auto) 37.0-80.0 % Lymphocytes (%) (Auto) 10.0-50.0 % Monocytes (%) (Auto) 0.0-12.0 % Basophils (%) (Auto) 0.0-2.0 % Neutrophils # (Auto) 1.6-8.6 10 ^3/uL Lymphocytes # (Auto) 0.4-5.4 10 ^3/uL Monocytes # (Auto) 0-1.3 10 ^3/uL Differential Total Cells Counted 100.0 100 Neutrophils % (Manual) 49 37.0-80.0 Band Neutrophils % (Manual) 0 Lymphocytes % (Manual) 25 10.0-50.0 Monocytes % (Manual) 2 0-12 Eosinophils % (Manual) 24 H 0-7 Basophils % (Manual) 0 0.0-2.0 Metamyelocytes % (manual) 0 Myelocytes % (Manual) 0 Promyelocytes % (Manual) 0 Blast Cells % (Manual) 0 Reactive Lymphocytes 0 Platelet Estimate Decreased Ovalocytes Few Prothrombin Time 14.0 H 9.3-11.8 sec Prothrombin Time INR 1.36 H 0.9-1.15 Activated Partial Thromboplast Time 36.4 H 24.5-34.5 SEC Troponin I High Sensitivity 25 </=54 ng/L Urine Color Light-yellow Yellow Urine Clarity Clear Clear Urine pH 5.5 5.0-9.0 Urine Specific [place] 1.011 1.001-1.035 Urine Protein Trace H Negative Urine Ketones Negative Negative Urine Blood Negative Negative /uL Urine Nitrite Negative Negative Urine Bilirubin Negative Negative Urine Urobilinogen Normal Negative mg/dL Urine Leukocyte Esterase Negative Negative /uL Urine RBC <1 0 - 3 /hpf Urine Microscopic WBC < 1 0-3 /HPF Urine Squamous Epithelial Cells Few <5 /hpf Urine Bacteria None seen None Seen /hpf Urine Mucus Few None Seen Urine Glucose Normal Normal mg/dL Test 08/10/25 12:50 08/10/25 11:40 Range/Units Troponin I High Sensitivity 25 25 </=54 ng/L White Blood Count 7.6 4.4-10.8 10^3/uL Red Blood Count 5.00 4.5-5.90 10^6/uL Hemoglobin 14.8 13.5-17.5 g/dL Hematocrit 45.3 41.0-53.0 % Mean Corpuscular Volume 90.6 80.0-100.0 fL Mean Corpuscular Hemoglobin 29.6 28.0-32.0 pg Mean Corpuscular Hemoglobin Concent 32.7 32.0-36.0 g/dL Red Cell Distribution Width 15.8 H 11.8-14.3 % Platelet Count 118 L 140-450 10^3/uL Mean Platelet Volume 10.7 6.9-10.8 fL Neutrophils (%) (Auto) 37.0-80.0 % Lymphocytes (%) (Auto) 10.0-50.0 % Monocytes (%) (Auto) 0.0-12.0 % Eosinophils (%) (Auto) 0.0-7.0 % Basophils (%) (Auto) 0.0-2.0 % Neutrophils # (Auto) 1.6-8.6 10 ^3/uL Lymphocytes # (Auto) 0.4-5.4 10 ^3/uL Monocytes # (Auto) 0-1.3 10 ^3/uL Differential Total Cells Counted 100.0 100 Neutrophils % (Manual) 57 37.0-80.0 Band Neutrophils % (Manual) 0 Lymphocytes % (Manual) 9 L 10.0-50.0 Monocytes % (Manual) 6 0-12 Eosinophils % (Manual) 28 H 0-7 Basophils % (Manual) 0 0.0-2.0 Metamyelocytes % (manual) 0 Myelocytes % (Manual) 0 Promyelocytes % (Manual) 0 Blast Cells % (Manual) 0 Reactive Lymphocytes 0 Platelet Estimate Decreased Large Platelets Few Poikilocytosis (manual) Slight Sodium Level 142 136-145 mmol/L Potassium Level 4.6 3.5-5.1 mmol/L Chloride Level 105 98-107 mmol/L Carbon Dioxide Level 28 20-31 mmol/L Anion Gap 9 5-15 Blood Urea Nitrogen 35 H 9-23 mg/dL Creatinine 1.43 H 0.700-1.30 mg/dL Glomerular Filtration Rate Calc 50 >90 mL/min BUN/Creatinine Ratio 24.5 H 10.0-20.0 Serum Glucose 115 H 74-106 mg/dL Calcium Level 9.5 8.7-10.4 mg/dL B-Type Natriuretic Peptide 1153.22 0-100 pg/mL Assessment Acute kidney injury superimposed 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 I discussed my plan of care with the patient and primary nurse at the bedside I would like to thank Dr. Beatty for the consult, will follow Plan discussed with: Patient ANIKET FAJARDO MD Aug 14, 2025 15:30
[2025-08-14 15:56] LABS: Magnesium 2.4 mg/dL (1.6-2.6)
--- NOTE | 2025-08-14 16:34 | DVH ---
EXAM: XY CHEST XRAY 1 VIEW HISTORY: chf TECHNIQUE: 1 view of the chest COMPARISON: XY CHEST PORTABLE on DOS: 08/10/25 FINDINGS/IMPRESSION: LUNGS: Small to medium left-sided pleural effusion. Peripheral interstitial edema. Overall correlate for volume overload. MEDIASTINUM: Normal cardiac size. Possible retrocardiac opacification in the right lung base. BONES: No acute osseous abnormality. OTHER: None.
[2025-08-14] MEDS: DOPamine 1600MCG/ML D5W 250 ML IV SCH (16:44)
--- NOTE | 2025-08-14 16:49 | DVH ---
INDICATION: mac TECHNIQUE: Multiple real-time sonographic images of the kidneys and bladder were obtained. COMPARISON: None FINDINGS: The right kidney right kidney not visualized and May have been removed. The left kidney measures 10.4 cm long . Left-sided nephrolithiasis. No hydronephrosis.. No large intraluminal masses are seen in the bladder. Prior to voiding the bladder volume measures volume 53 mL Left ureteral jet visualized in the bladder. Bladder wall measures 1.3 mm Prevoid bladder volume 53 mL. No postvoid bladder images received. IMPRESSION: 1. Normal sonographic appearance of the kidneys. No hydronephrosis.
--- NOTE | 2025-08-14 17:32 | DVHPN2 ---
Subjective Overnight events noted. Patient's family member at bedside currently updated regarding plan of care. Patient's repeat chest x-ray shows left sides moderate effusion, pulmonary will be consulted for thoracentesis. Changes from previous H/P or p: No Changes Objective Vitals Vital Signs Date Time Temp Pulse Resp B/P (MAP) Pulse Ox O2 Delivery O2 Flow Rate FiO2 08/14/25 17:00 97.8 96 18 94/49 (64) 94 97.8 08/14/25 08:00 Nasal Cannula* 4 36 Intake/Output Intake and Output 08/14/25 07:00 Intake Total 894 ml Output Total 1150 ml Balance -256 ml Intake Oral 894 ml Output Urine Total 1150 ml # Voids 3 # Bowel Movements 1 Exam HEENT pupils are reactive Neck is supple CV is S1-S2 regular rate and rhythm Respiratory diminished breath sounds at lung bases bilateral. 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 Medications Current Medications Medications Dose Ordered Sig/Martha Route Start Time Stop Time Status Last Admin Dose Admin Nitroglycerin 0.4 mg Q5MINP PRN SL 08/10/25 14:00 Morphine Sulfate 2 mg Q30M PRN IV 08/10/25 14:00 Hold Ondansetron HCl 4 mg Q6HPRN PRN IV 08/10/25 14:00 Acetaminophen 650 mg Q4HP PRN PO 08/10/25 14:00 Finasteride 5 mg DAILY PO 08/11/25 10:00 08/14/25 09:27 5 MG Levothyroxine Sodium 50 mcg QAM PO 08/11/25 07:00 08/14/25 06:10 50 MCG Trazodone HCl 25 mg DAILY PO 08/11/25 10:00 08/14/25 09:32 25 MG Empaglifozin 10 mg DAILY PO 08/11/25 10:00 08/14/25 09:32 10 MG Melatonin 5 mg HS PO 08/13/25 00:45 Dopamine HCl/ Dextrose 250 ml @ 6.263 mls/ hr Q24H IV 08/14/25 15:30 08/14/25 16:44 6.263 MLS/HR Enoxaparin Sodium 80 mg BID SC 08/14/25 22:00 Laboratory Results Laboratory Tests 08/11/25 04:43 08/14/25 13:25 Chemistry Test 08/14/25 13:25 Calcium Level 9.3 mg/dL (8.7-10.4) Magnesium Level 2.4 mg/dL (1.6-2.6) Phosphorus Level 4.2 mg/dL (2.4-5.1) Cardiac Markers Test 08/14/25 13:25 B-Type Natriuretic Peptide 1215.90 pg/mL (0-100) Urinalysis Test 08/10/25 14:20 08/14/25 17:00 Urine Mucus Few (None Seen) Urine Color Pending Urine Clarity Pending Urine pH Pending Urine Specific [place] Pending Urine Protein Pending Urine Ketones Pending Urine Blood Pending Urine Nitrite Pending Urine Bilirubin Pending Urine Urobilinogen Pending Urine Leukocyte Esterase Pending Urine RBC Pending Urine Microscopic WBC Pending Urine Squamous Epithelial Cells Pending Urine Bacteria Pending Urine Creatinine Pending Urine Protein/Creatinine Ratio Pending Urine Sodium Pending Urine Glucose Pending Urine Total Protein Pending Assessment/Plan Assessment/Plan 79-year-old male with a known history of nonischemic cardiomyopathy, pulmonary hypertension, who initially presented to the hospital with increasing shortness a breath found to have 1. Acute on chronic congestive heart failure exacerbation with systolic dysfunction 2. Cardiomyopathy with the EF of 35% 3. Acute kidney injury worsening, hold Lasix and Aldactone 4. Pulmonary hypertension 5. Bilateral leg edema 6. Agitation 7. Acute hypoxic respiratory failure secondary to acute CHF exacerbation and bilateral atelectasis 8. Atrial flutter -therapeutic Lovenox, risks benefits and alternatives therapeutic Lovenox explained to the patient in detail, pharmacy to adjust the renal dose -hold diuretics because of worsening acute kidney injury, arrange home oxygen at 3 L by continuous nasal cannula. Plan discussed with: Patient, Other My Orders Orders - MAHSA RICH MD Procedure Category Date Status Time Chest Xray 1 View XY 08/14/25 Resulted 12:28 *Dr. Bhargav Aguayo CONS 08/14/25 Transmitted -[place] 14:26 Parathyroid Hormone LAB 08/14/25 In Process Intact 15:21 *Consult CONS 08/14/25 Transmitted 16:54 Enoxaparin Sodium PHA 08/14/25 In Process (Lovenox) 22:00 Electrocardigram EKG 08/14/25 Logged 17:18 Date of Service: Aug 14, 2025 Billing Provider: MAHSA RICH MD Common Visit Codes: NOT BILLABLE MAHSA RICH MD Aug 14, 2025 17:32
[2025-08-14 17:53] LABS: Protein, Urine 11.8 mg/dL (1-14)
[2025-08-14 18:06] LABS: Urine Protein, UAD Negative (Negative)
[2025-08-14] MEDS ORDERED: HEPARIN SODIUM (PORCINE) 5000 UNITS/ML 1ML VIAL SC SCH (22:00)
[2025-08-14] MEDS: METOPROLOL TARTRATE 25 MG TAB PO SCH (22:41)
[2025-08-14] MEDS: ENOXAPARIN SOD 80 MG/0.8ML SYRINGE SC SCH (22:42)
[2025-08-15] VITALS (9 sets, daily range): BP systolic 76–114; BP diastolic 51–75; PULSE 80–125; RESP 18–20; TEMP 97.7–98.2; O2SAT 90–96
--- NOTE | 2025-08-15 10:36 | DVHPN2 ---
Progress Note Date Seen: Aug 15, 2025 Medical Necessity Reason Pt with a Central, PICC or Fol: No Subjective Patient reports: No new complaints Other Systems: Patient seen and examined by myself today in follow-up Objective vital signs Vital Sign Date Time Temp Pulse Resp B/P (MAP) Pulse Ox O2 Delivery O2 Flow Rate FiO2 08/15/25 09:00 98.1 110 18 96/67 (77) 95 98.1 08/14/25 20:00 Nasal Cannula* 5 40 Total Intake and Output 08/14/25 08/14/25 08/15/25 15:00 23:00 07:00 Intake Total 750 ml 375 ml Output Total 300 ml 650 ml 1000 ml Balance -300 ml 100 ml -625 ml medications Current Medications Medications Dose Ordered Sig/Martha Route Start Time Stop Time Status Last Admin Dose Admin Nitroglycerin 0.4 mg Q5MINP PRN SL 08/10/25 14:00 Morphine Sulfate 2 mg Q30M PRN IV 08/10/25 14:00 Hold Ondansetron HCl 4 mg Q6HPRN PRN IV 08/10/25 14:00 Acetaminophen 650 mg Q4HP PRN PO 08/10/25 14:00 Finasteride 5 mg DAILY PO 08/11/25 10:00 08/15/25 09:01 Levothyroxine Sodium 50 mcg QAM PO 08/11/25 07:00 08/15/25 06:16 Trazodone HCl 25 mg DAILY PO 08/11/25 10:00 08/14/25 09:32 Empaglifozin 10 mg DAILY PO 08/11/25 10:00 08/15/25 09:01 Melatonin 5 mg HS PO 08/13/25 00:45 08/14/25 22:41 Dopamine HCl/ Dextrose 250 ml @ 6.263 mls/ hr Q24H IV 08/14/25 15:30 08/14/25 16:44 Enoxaparin Sodium 80 mg BID SC 08/14/25 22:00 08/15/25 08:58 Metoprolol Tartrate 12.5 mg BID PO 08/14/25 22:00 08/15/25 09:00 Examination: LUNGS:Normal, CVS:Normal, MSK:Abnormal laboratory and microbiology Laboratory Tests 08/14/25 13:25 08/11/25 04:43 Test 08/14/25 13:25 Range/Units Serum Glucose 140 H 74-106 mg/dL Problem List/Assessment/Plan Problem List/Assessment/Plan Acute kidney injury superimposed 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 Acute respiratory failure, O2 supplement Acute on chronic systolic Congestive heart failure AFib with RVR Diabetes mellitus type 2 Hypotension Thrombocytopenia Recommendations Kidney function slightly worsened today Increased urine output Strict I&Os kidney ultrasound reported within normal limit Low-dose dopamine Discontinue spironolactone Insulin sliding scale Cardiology consult Hematology consult We will continue to follow Plan discussed with: Patient My Orders My Orders Orders - ANIKET FAJARDO MD Procedure Category Date Status Time Kidney US 08/14/25 Resulted 15:21 Dopamine 1600mcg/Ml PHA 08/14/25 In Process D5W 15:30 Renal Specific DIET 08/14/25 Transmitted Diet(Renal) Dinner ANIKET FAJARDO MD Aug 15, 2025 10:36
--- NOTE | 2025-08-15 13:18 | ECG ---
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
[2025-08-15 16:47] LABS: Chloride 101 mmol/L (98-107); Sodium 142 mmol/L (136-145)
[2025-08-15 16:48] LABS: Anion Gap 8 (5-15); Calcium 9.4 mg/dL (8.7-10.4)
[2025-08-15 16:53] LABS: BUN/Creatinine Ratio 28.9 (10.0-20.0)
[2025-08-15 16:54] LABS: Blood Urea Nitrogen 50 mg/dL (9-23); Carbon Dioxide 33 mmol/L (20-31); Glucose 106 mg/dL (74-106); Potassium 5.3 mmol/L (3.5-5.1)
--- NOTE | 2025-08-15 17:54 | DVHPN2 ---
Subjective Overnight events noted. Patient's family member at bedside currently updated regarding plan of care. Ultrasound of the chest requested. Changes from previous H/P or p: No Changes Objective Vitals Vital Signs Date Time Temp Pulse Resp B/P (MAP) Pulse Ox O2 Delivery O2 Flow Rate FiO2 08/15/25 17:00 97.9 123 20 100/75 (83) 93 97.9 08/15/25 08:10 Nasal Cannula* 4 36 Intake/Output Intake and Output 08/15/25 07:00 Intake Total 1125 ml Output Total 1950 ml Balance -825 ml Intake Oral 1050 ml IV Total 75 ml Output Urine Total 1950 ml # Bowel Movements 1 Exam HEENT pupils are reactive Neck is supple CV is S1-S2 regular rate and rhythm Respiratory diminished breath sounds at lung bases bilateral. 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 Medications Current Medications Medications Dose Ordered Sig/Martha Route Start Time Stop Time Status Last Admin Dose Admin Nitroglycerin 0.4 mg Q5MINP PRN SL 08/10/25 14:00 Morphine Sulfate 2 mg Q30M PRN IV 08/10/25 14:00 Hold Ondansetron HCl 4 mg Q6HPRN PRN IV 08/10/25 14:00 Acetaminophen 650 mg Q4HP PRN PO 08/10/25 14:00 Finasteride 5 mg DAILY PO 08/11/25 10:00 08/15/25 09:01 5 MG Levothyroxine Sodium 50 mcg QAM PO 08/11/25 07:00 08/15/25 06:16 50 MCG Trazodone HCl 25 mg DAILY PO 08/11/25 10:00 08/14/25 09:32 25 MG Empaglifozin 10 mg DAILY PO 08/11/25 10:00 08/15/25 09:01 10 MG Melatonin 5 mg HS PO 08/13/25 00:45 08/14/25 22:41 5 MG Dopamine HCl/ Dextrose 250 ml @ 6.263 mls/ hr Q24H IV 08/14/25 15:30 08/14/25 16:44 6.263 MLS/HR Enoxaparin Sodium 80 mg BID SC 08/14/25 22:00 08/15/25 08:58 80 MG Metoprolol Tartrate 12.5 mg BID PO 08/14/25 22:00 08/15/25 09:00 12.5 MG Sodium Chloride 1,000 ml @ 200 mls/hr Q5H IV 08/15/25 16:00 Laboratory Results Laboratory Tests 08/11/25 04:43 08/15/25 16:14 Chemistry Test 08/15/25 16:14 Calcium Level 9.4 mg/dL (8.7-10.4) Urinalysis Test 08/10/25 14:20 08/14/25 17:00 Urine Mucus Few (None Seen) Urine Color Light-yellow (Yellow) Urine Clarity Clear (Clear) Urine pH 5.0 (5.0-9.0) Urine Specific [place] 1.012 (1.001-1.035) Urine Protein Negative (Negative) Urine Ketones Negative (Negative) Urine Blood Negative /uL (Negative) Urine Nitrite Negative (Negative) Urine Bilirubin Negative (Negative) Urine Urobilinogen Normal mg/dL (Negative) Urine Leukocyte Esterase Negative /uL (Negative) Urine RBC <1 /hpf (0 - 3) Urine Microscopic WBC 2 /HPF (0-3) Urine Squamous Epithelial Cells None seen /hpf (<5) Urine Bacteria None seen /hpf (None Seen) Urine Hyaline Casts Few /lpf (0 - 2) Urine Creatinine 85.33 mg/dL (30.0-125.0) Urine Protein/Creatinine Ratio 0.14 Urine Sodium 31 mmol/L (40-220) L Urine Glucose 2+ mg/dL (Normal) H Urine Total Protein 11.8 mg/dL (1-14) Assessment/Plan Assessment/Plan 79-year-old male with a known history of nonischemic cardiomyopathy, pulmonary hypertension, who initially presented to the hospital with increasing shortness a breath found to have 1. Acute on chronic congestive heart failure exacerbation with systolic dysfunction 2. Cardiomyopathy with the EF of 35% 3. Acute kidney injury worsening, keep holding Lasix and Aldactone 4. Pulmonary hypertension 5. Bilateral leg edema 6. Agitation 7. Acute hypoxic respiratory failure secondary to acute CHF exacerbation and bilateral atelectasis 8. Atrial flutter, currently on therapeutic level -therapeutic Lovenox, risks benefits and alternatives therapeutic Lovenox explained to the patient in detail, pharmacy to adjust the renal dose -hold diuretics because of worsening acute kidney injury, arrange home oxygen at 3 L by continuous nasal cannula. -continue dopamine renal dose. Follow up Nephrology recommendations. Plan discussed with: Patient, Other My Orders Orders - MAHSA RICH MD Procedure Category Date Status Time Metoprolol Tartrate PHA 08/14/25 In Process Tablet (Lopressor Ta 22:00 Sodium Chloride 0.9% PHA 08/15/25 In Process 16:00 Date of Service: Aug 15, 2025 Billing Provider: MAHSA RICH MD Common Visit Codes: NOT BILLABLE MAHSA RICH MD Aug 15, 2025 17:54
[2025-08-15] MEDS ORDERED: SODIUM ZIRCONIUM CYCL 10 GM PAK PO ONE (18:00)
[2025-08-15] MEDS: SODIUM CHLORIDE 0.9% 1,000 ML IV SCH (21:00)
--- NOTE | 2025-08-15 22:23 | DVHINCON2 ---
Date of service: Aug 14, [address] Beatty Reason for Consultation Acute hypoxic respiratory failure and pleural effusion. History of Present Illness An 79 year old man with PMHx of diabetes mellitus type 2, myocardial infarction and CHF who presented to the ED on 08/10/25 with a chief complaint of shortness of breath onset day of presentation. Patient reported shortness of breath worse with exertion since morning of presentation; also c/o BLE swelling. Per , he was placed on Lasix about 2 weeks ago, has been complaint with medication, no improvement of bilateral leg swelling. Patient denied chest pain, dizziness, numbness/tingling, fever, chills, N/V/D or other acute complaints. Patient was admitted for further care. Pulmonary consultation is requested for evaluation and management of acute hypoxic respiratory failure and pleural effusion. Review of Systems: 14-point review of systems negative unless otherwise noted above. Past Medical History: Diabetes mellitus type 2, history of MA, history of CHF Past Surgical History: None Medications: Reviewed. Allergies: Codeine PCN Family History: Hypertension, diabetes, cancer. Social History: Nonsmoker. No alcohol or illicit drug use. Family History: Diabetes mellitus G8 FATHER FH: cancer G8 MOTHER Allergies: Coded Allergies: Codeine (Verified Allergy, Unknown, UNKNOWN, 07/17/23) Uncoded Allergies: PCN (Allergy, Unknown, UNKNOWN, 07/17/23) Home Meds Active Scripts Spironolactone (Aldactone) 25 Mg Tab, 1 TAB PO DAILY, #90 TAB 1 Refill Prov:ALIZA HICKS MD 08/12/25 Empagliflozin (Jardiance) 10 Mg Tab, 10 MG PO QPM, #60 TAB Prov:ALIZA HICKS MD 08/12/25 Furosemide (Furosemide) 40 Mg Tab, 1 TAB PO DAILY, #30 TAB 5 Refills Prov:ALIZA HICKS MD 08/12/25 Carvedilol (Carvedilol) 3.125 Mg Tab, 1 TAB PO BID, #60 TAB 3 Refills Prov:ALIZA HICKS MD 08/12/25 Reported Medications Patients Own Medication (PATIENTS OWN MEDICATION) ., for WEIGHT LOSS PTS OWN MED-OBTAIN FROM PT AND SEND TO RX DRUG: FREQ: RX# EXP: DATE DISP: TECH: [facility]: 07/17/23 Levothyroxine Sodium (Levothyroxine Sodium) 50 Mcg Tab, 50 MCG PO QAM for LOW THYROID for 30 Days, MCG 07/17/23 Alpha Tocopheryl Acid Succinat (VITAMIN E) 400 Unit Tab, 400 UNIT PO DAILY for SUPPLEMENT, TAB 07/17/23 Cholecalciferol (VITAMIN D3) 5,000 Unit Cap, 5000 UNIT PO DAILY for SUPPLEMENT, CAP 07/17/23 Trazodone HCl (Trazodone Hydrochloride) 50 Mg Tab, 25 MG PO DAILY for DEPRESSION, TAB 07/17/23 Simvastatin (Simvastatin) 5 Mg Tab, 5 MG PO QHSP PRN for CHOLESTEROL, TAB 07/17/23 Lisinopril (Lisinopril) 40 Mg Tab, 1 TAB PO DAILY for HTN, #30 TAB 5 Refills 07/17/23 Finasteride (Finasteride) 5 Mg Tab, 5 MG PO DAILY for BPH, MG 07/17/23 Amlodipine Besylate (Amlodipine Besylate) 5 Mg Tab, 10 MG PO DAILY for HTN, MG 07/17/23 Current Medications Current Medications Medications (Trade) Dose Ordered Sig/Martha Route PRN Reason Start Time Stop Time Status Last Admin Sodium Chloride 1,000 ml @ 200 mls/hr Q5H IV 08/15/25 16:00 Vital Signs Vital Signs Date Time Temp Pulse Resp B/P (MAP) Pulse Ox O2 Delivery O2 Flow Rate FiO2 08/15/25 21:02 94 92/54 08/15/25 17:00 97.9 20 93 97.9 08/15/25 08:10 Nasal Cannula* 4 36 Physical Exam Gen.: Patient lying in bed in no apparent distress. On supplemental oxygen. Head: Normocephalic, atraumatic. Eyes: EOMI/PERRLA. Ears: Normal hearing. Normal anatomy. Neck/trachea: Trachea midline, supple. Nose: Normal external anatomy. Mouth: Moist mucous membranes. Chest: Decreased air entry bilaterally. No wheezing or rhonchi. Cardiovascular: Positive S1, positive S2. Regular rate and rhythm. Abdomen: Positive bowel sounds in all 4 quadrants. Soft, non-tender, non- distended. : Deferred. Rectal: Deferred. Skin: Warm, dry. Intact. Extremities: 2+ radial pulses bilaterally. No lower extremity edema. Neuro: Awake, alert, oriented x3. No gross motor or sensory deficits. Cranial nerves II through XII intact. Gait not assessed. Labs/Diagnostic Data Labs Test 08/15/25 16:14 08/14/25 17:00 08/14/25 15:21 08/14/25 13:25 Range/Units Sodium Level 142 136-145 mmol/L Potassium Level 5.3 H 3.5-5.1 mmol/L Chloride Level 101 98-107 mmol/L Carbon Dioxide Level 33 H 20-31 mmol/L Anion Gap 8 5-15 Blood Urea Nitrogen 50 H 9-23 mg/dL Creatinine 1.73 H 0.700-1.30 mg/dL Glomerular Filtration Rate Calc 39 >90 mL/min BUN/Creatinine Ratio 28.9 H 10.0-20.0 Serum Glucose 106 74-106 mg/dL Calcium Level 9.4 8.7-10.4 mg/dL Urine Color Light-yellow Yellow Urine Clarity Clear Clear Urine pH 5.0 5.0-9.0 Urine Specific [place] 1.012 1.001-1.035 Urine Protein Negative Negative Urine Ketones Negative Negative Urine Blood Negative Negative /uL Urine Nitrite Negative Negative Urine Bilirubin Negative Negative Urine Urobilinogen Normal Negative mg/dL Urine Leukocyte Esterase Negative Negative /uL Urine RBC <1 0 - 3 /hpf Urine Microscopic WBC 2 0-3 /HPF Urine Squamous Epithelial Cells None seen <5 /hpf Urine Bacteria None seen None Seen /hpf Urine Hyaline Casts Few 0 - 2 /lpf Urine Creatinine 85.33 30.0-125.0 mg/dL Urine Protein/Creatinine Ratio 0.14 Urine Sodium 31 L 40-220 mmol/L Urine Glucose 2+ H Normal mg/dL Urine Total Protein 11.8 1-14 mg/dL Vitamin D 25-Hydroxy 52.6 30.0-100 ng/mL Phosphorus Level 4.2 2.4-5.1 mg/dL Magnesium Level 2.4 1.6-2.6 mg/dL B-Type Natriuretic Peptide 1215.90 0-100 pg/mL Parathyroid Hormone (Intact) 266.1 H 18.4-80.1 pg/mL Test 08/13/25 15:00 08/11/25 04:43 08/10/25 14:36 08/10/25 14:20 Range/Units Total Bilirubin 0.7 0.2-1.0 mg/dL Aspartate Amino Transferase (AST) 24 13-40 U/L Alanine Aminotransferase (ALT) 28 7-40 U/L Alkaline Phosphatase 62 46-116 U/L Total Protein 7.2 5.7-8.2 g/dL Albumin 4.1 3.2-4.8 g/dL White Blood Count 7.1 4.4-10.8 10^3/uL Red Blood Count 4.89 4.5-5.90 10^6/uL Hemoglobin 14.5 13.5-17.5 g/dL Hematocrit 44.7 41.0-53.0 % Mean Corpuscular Volume 91.3 80.0-100.0 fL Mean Corpuscular Hemoglobin 29.6 28.0-32.0 pg Mean Corpuscular Hemoglobin Concent 32.5 32.0-36.0 g/dL Red Cell Distribution Width 16.1 H 11.8-14.3 % Platelet Count 104 L 140-450 10^3/uL Mean Platelet Volume 10.5 6.9-10.8 fL Neutrophils (%) (Auto) 37.0-80.0 % Lymphocytes (%) (Auto) 10.0-50.0 % Monocytes (%) (Auto) 0.0-12.0 % Basophils (%) (Auto) 0.0-2.0 % Neutrophils # (Auto) 1.6-8.6 10 ^3/uL Lymphocytes # (Auto) 0.4-5.4 10 ^3/uL Monocytes # (Auto) 0-1.3 10 ^3/uL Differential Total Cells Counted 100.0 100 Neutrophils % (Manual) 49 37.0-80.0 Band Neutrophils % (Manual) 0 Lymphocytes % (Manual) 25 10.0-50.0 Monocytes % (Manual) 2 0-12 Eosinophils % (Manual) 24 H 0-7 Basophils % (Manual) 0 0.0-2.0 Metamyelocytes % (manual) 0 Myelocytes % (Manual) 0 Promyelocytes % (Manual) 0 Blast Cells % (Manual) 0 Reactive Lymphocytes 0 Platelet Estimate Decreased Ovalocytes Few Prothrombin Time 14.0 H 9.3-11.8 sec Prothrombin Time INR 1.36 H 0.9-1.15 Activated Partial Thromboplast Time 36.4 H 24.5-34.5 SEC Troponin I High Sensitivity 25 </=54 ng/L Urine Mucus Few None Seen Test 08/10/25 11:40 Range/Units Eosinophils (%) (Auto) 0.0-7.0 % Large Platelets Few Poikilocytosis (manual) Slight Assessment Impression: Acute hypoxic respiratory failure Dependence on supplemental oxygen Pulmonary hypertension Pulmonary edema Pleural effusion Atelectasis Atrial fibrillation Overweight Plan: Supplemental oxygen Titrate to keep O2 sats above 92%. On 4-5 LPM NC Taper O2 as tolerated. CXR on 08/14/25 reveals small to medium left-sided pleural effusion. Peripheral interstitial edema. Overall correlate for volume overload. Normal cardiac size. Possible retrocardiac opacification in the right lung base. Obtain limited chest ultrasound to assess if pleural effusion amenable to thoracentesis. Incentive spirometry Follow up Cardiology recs Dopamine, renally dosed Nephrology recs appreciated. Monitor renal function. Monitor electrolytes. Supplement as necessary. Monitor ins and outs. Recommend diet and lifestyle modifications for weight reduction DVT prophylaxis. Prognosis: Poor given patient's multiple co-morbidities. Rest of plan per hospitalist and other consultants. Thank you, Dr. Beatty, for allowing me to participate in this patient's care. Further recommendations will depend on the patient's clinical course. Please do not hesitate to contact me if you have any questions or concerns. This medical document was created using an electronic medical record system with [employer] dictation system. Although these documentations are being carefully reviewed, there may still be some phonetic and typographical changes. The errors are purely typographical, due to imperfection on the software program, and do not reflect any compromise in the patient's medical care. Plan discussed with: Other (RN/MD) [facility] Aug 15, 2025 22:22
--- NOTE | 2025-08-15 22:34 | DVHPN2 ---
Progress Note - Dictate Date Seen: Aug 15, 2025 Medical Necessity Reason Pt with a Central, PICC or Fol: No Subjective Patient seen and examined at bedside. Remains on supplemental oxygen Overnight events reviewed. vital signs Vital Sign Date Time Temp Pulse Resp B/P (MAP) Pulse Ox O2 Delivery O2 Flow Rate FiO2 08/15/25 21:02 94 92/54 08/15/25 17:00 97.9 20 93 97.9 08/15/25 08:10 Nasal Cannula* 4 36 Total Intake and Output 08/14/25 08/14/25 08/15/25 14:59 22:59 06:59 Intake Total 750 ml 300 ml Output Total 300 ml 650 ml 1000 ml Balance -300 ml 100 ml -700 ml medications Current Medications Medications Dose Ordered Sig/Martha Route Start Time Stop Time Status Last Admin Dose Admin Nitroglycerin 0.4 mg Q5MINP PRN SL 08/10/25 14:00 Morphine Sulfate 2 mg Q30M PRN IV 08/10/25 14:00 Hold Ondansetron HCl 4 mg Q6HPRN PRN IV 08/10/25 14:00 Acetaminophen 650 mg Q4HP PRN PO 08/10/25 14:00 Finasteride 5 mg DAILY PO 08/11/25 10:00 08/15/25 09:01 Levothyroxine Sodium 50 mcg QAM PO 08/11/25 07:00 08/15/25 06:16 Trazodone HCl 25 mg DAILY PO 08/11/25 10:00 08/14/25 09:32 Empaglifozin 10 mg DAILY PO 08/11/25 10:00 08/15/25 09:01 Melatonin 5 mg HS PO 08/13/25 00:45 08/14/25 22:41 Dopamine HCl/ Dextrose 250 ml @ 6.263 mls/ hr Q24H IV 08/14/25 15:30 08/14/25 16:44 Enoxaparin Sodium 80 mg BID SC 08/14/25 22:00 08/15/25 08:58 Metoprolol Tartrate 12.5 mg BID PO 08/14/25 22:00 08/15/25 09:00 Sodium Chloride 1,000 ml @ 200 mls/hr Q5H IV 08/15/25 16:00 objective Gen.: Patient lying in bed in no apparent distress. On supplemental oxygen. Head: Normocephalic, atraumatic. Eyes: EOMI/PERRLA. Ears: Normal hearing. Normal anatomy. Neck/trachea: Trachea midline, supple. Nose: Normal external anatomy. Mouth: Moist mucous membranes. Chest: Decreased air entry bilaterally. No wheezing or rhonchi. Cardiovascular: Positive S1, positive S2. Regular rate and rhythm. Abdomen: Positive bowel sounds in all 4 quadrants. Soft, non-tender, non- distended. : Deferred. Rectal: Deferred. Skin: Warm, dry. Intact. Extremities: 2+ radial pulses bilaterally. No lower extremity edema. Neuro: Awake, alert, oriented x3. No gross motor or sensory deficits. Cranial nerves II through XII intact. Gait not assessed. laboratory and microbiology Laboratory Tests 08/15/25 16:14 08/11/25 04:43 Test 08/15/25 16:14 Range/Units Serum Glucose 106 74-106 mg/dL Assessment/Plan Impression: Acute hypoxic respiratory failure Dependence on supplemental oxygen Pulmonary hypertension Pulmonary edema Pleural effusion Atelectasis Atrial fibrillation Overweight Events: Remains on supplemental oxygen, 4 LPM NC Taper O2 as tolerated CXR on 08/14/25 reveals small to medium left-sided pleural effusion. Peripheral interstitial edema. Overall correlate for volume overload. Normal cardiac size. Possible retrocardiac opacification in the right lung base. Limited chest ultrasound performed, demonstrates small left pleural effusion not amenable to thoracentesis. Incentive spirometry Diurese to euvolemia Monitor renal function Monitor electrolytes, supplement as necessary. Cardiology recs appreciated. Labs and imaging reviewed. Rest of plan as noted below. Plan: Supplemental oxygen Titrate to keep O2 sats above 92%. Taper O2 as tolerated. Incentive spirometry Follow up Cardiology recs Dopamine, renally dosed Nephrology recs appreciated. Diurese to euvolemia Monitor renal function. Monitor electrolytes. Supplement as necessary. Monitor ins and outs. Recommend diet and lifestyle modifications for weight reduction DVT prophylaxis. Prognosis: Poor given patient's multiple co-morbidities. Rest of plan per hospitalist and other consultants. Thank you, Dr. Beatty, for allowing me to participate in this patient's care. Further recommendations will depend on the patient's clinical course. Please do not hesitate to contact me if you have any questions or concerns. This medical document was created using an electronic medical record system with [employer] computerized dictation system. Although these documentations are being carefully reviewed, there may still be some phonetic and typographical changes. The errors are purely typographical, due to imperfection on the software program, and do not reflect any compromise in the patient's medical care. Dietary Evaluation Review Comments: Nutrition Recommendation: 1) Ensure High Protein 240ml BID if PO intake <50% 2) Monitor PO intake, lab values, weight trend, and I/O Expected Outcomes/Goals: Intake to meet >75% estimated needs Lab values to improve FU 3-5 days Plan discussed with: Patient, Other (MAYNOR Lee) [facility]OSS [facility] Aug 15, 2025 22:34
[2025-08-16] VITALS (9 sets, daily range): BP systolic 99–137; BP diastolic 68–90; PULSE 83–126; RESP 16–19; TEMP 97.5–98.7; O2SAT 92–98
[2025-08-16] MEDS: SODIUM ZIRCONIUM CYCL 10 GM PAK PO ONE (00:08)
[2025-08-16 06:12] LABS: Anion Gap 9 (5-15); Carbon Dioxide 30 mmol/L (20-31); Chloride 102 mmol/L (98-107); Potassium 4.6 mmol/L (3.5-5.1); Sodium 141 mmol/L (136-145)
[2025-08-16 06:14] LABS: Calcium 9.2 mg/dL (8.7-10.4)
[2025-08-16 06:18] LABS: Glucose 93 mg/dL (74-106)
[2025-08-16 06:19] LABS: BUN/Creatinine Ratio 29.8 (10.0-20.0); Blood Urea Nitrogen 42 mg/dL (9-23); Magnesium 2.4 mg/dL (1.6-2.6)
--- NOTE | 2025-08-16 08:05 | DVH ---
CHEST RADIOGRAPH Indication: Pleural effusion Technique: 1 view of the chest Comparison: XY CHEST XRAY 1 VIEW on DOS: 08/14/25, XY CHEST PORTABLE on DOS: 08/10/25, XY CHEST XRAY 1 VIEW on DOS: 08/14/25 FINDINGS: LUNGS: Small to medium left-sided pleural effusion. Peripheral interstitial edema. Overall correlate for volume overload. MEDIASTINUM: Normal cardiac size. P ossible retrocardiac opacification in the right lung base. BONES: No acute osseous abnormality. OTHER: None. IMPRESSION: 1. No interval change.
[2025-08-16 08:56] LABS: Hematocrit 42.4 % (41.0-53.0); Hemoglobin 13.7 g/dL (13.5-17.5); Mean Corpuscular Hemoglobin 29.5 pg (28.0-32.0); Mean Corpuscular Volume 91.5 fL (80.0-100.0); Nucleated Red Blood Cells % 0.0 %
--- NOTE | 2025-08-16 15:44 | DVHPN2 ---
Subjective Overnight events noted. Patient's family member at bedside currently updated regarding plan of care. Kidney functions are trended down, patient is complaining of nosebleed. Changes from previous H/P or p: No Changes Objective Vitals Vital Signs Date Time Temp Pulse Resp B/P (MAP) Pulse Ox O2 Delivery O2 Flow Rate FiO2 08/16/25 13:00 97.5 125 16 105/75 (85) 98 97.5 08/15/25 20:00 Nasal Cannula* 5 40 Intake/Output Intake and Output 08/16/25 07:00 Intake Total 1525 ml Output Total 850 ml Balance 675 ml Intake Oral 1525 ml Output Urine Total 850 ml # Voids 2 Exam HEENT pupils are reactive Neck is supple CV is S1-S2 regular rate and rhythm Respiratory diminished breath sounds at lung bases bilateral. GI positive bowel sounds Extremity 3+ pitting edema BELLSTAFF no motor deficit Medications Current Medications Medications Dose Ordered Sig/Martha Route Start Time Stop Time Status Last Admin Dose Admin Nitroglycerin 0.4 mg Q5MINP PRN SL 08/10/25 14:00 Morphine Sulfate 2 mg Q30M PRN IV 08/10/25 14:00 Hold Ondansetron HCl 4 mg Q6HPRN PRN IV 08/10/25 14:00 Acetaminophen 650 mg Q4HP PRN PO 08/10/25 14:00 Finasteride 5 mg DAILY PO 08/11/25 10:00 08/16/25 10:00 5 MG Levothyroxine Sodium 50 mcg QAM PO 08/11/25 07:00 08/16/25 05:19 50 MCG Trazodone HCl 25 mg DAILY PO 08/11/25 10:00 08/16/25 10:00 25 MG Empaglifozin 10 mg DAILY PO 08/11/25 10:00 08/16/25 10:00 10 MG Melatonin 5 mg HS PO 08/13/25 00:45 08/14/25 22:41 5 MG Dopamine HCl/ Dextrose 250 ml @ 6.263 mls/ hr Q24H IV 08/14/25 15:30 08/16/25 05:04 6.263 MLS/HR Enoxaparin Sodium 80 mg BID SC 08/14/25 22:00 08/16/25 10:00 80 MG Metoprolol Tartrate 12.5 mg BID PO 08/14/25 22:00 08/16/25 10:00 12.5 MG Sodium Chloride 1,000 ml @ 200 mls/hr Q5H IV 08/15/25 16:00 08/15/25 21:00 200 MLS/HR Laboratory Results Laboratory Tests 08/16/25 05:04 Chemistry Test 08/15/25 16:14 08/16/25 05:04 Calcium Level 9.4 mg/dL (8.7-10.4) 9.2 mg/dL (8.7-10.4) Magnesium Level 2.4 mg/dL (1.6-2.6) Urinalysis Test 08/10/25 14:20 08/14/25 17:00 Urine Mucus Few (None Seen) Urine Color Light-yellow (Yellow) Urine Clarity Clear (Clear) Urine pH 5.0 (5.0-9.0) Urine Specific [place] 1.012 (1.001-1.035) Urine Protein Negative (Negative) Urine Ketones Negative (Negative) Urine Blood Negative /uL (Negative) Urine Nitrite Negative (Negative) Urine Bilirubin Negative (Negative) Urine Urobilinogen Normal mg/dL (Negative) Urine Leukocyte Esterase Negative /uL (Negative) Urine RBC <1 /hpf (0 - 3) Urine Microscopic WBC 2 /HPF (0-3) Urine Squamous Epithelial Cells None seen /hpf (<5) Urine Bacteria None seen /hpf (None Seen) Urine Hyaline Casts Few /lpf (0 - 2) Urine Creatinine 85.33 mg/dL (30.0-125.0) Urine Protein/Creatinine Ratio 0.14 Urine Sodium 31 mmol/L (40-220) L Urine Glucose 2+ mg/dL (Normal) H Urine Total Protein 11.8 mg/dL (1-14) Assessment/Plan Assessment/Plan 79-year-old male with a known history of nonischemic cardiomyopathy, pulmonary hypertension, who initially presented to the hospital with increasing shortness a breath found to have 1. Acute on chronic congestive heart failure exacerbation with systolic dysfunction 2. Cardiomyopathy with the EF of 35% 3. Acute kidney injury worsening, keep holding Lasix and Aldactone 4. Pulmonary hypertension 5. Bilateral leg edema 6. Agitation 7. Acute hypoxic respiratory failure secondary to acute CHF exacerbation and bilateral atelectasis 8. Atrial flutter, currently on therapeutic Lovenox -therapeutic Lovenox, risks benefits and alternatives therapeutic Lovenox explained to the patient in detail, pharmacy to adjust the renal dose -hold diuretics because of worsening acute kidney injury, arrange home oxygen at 3 L by continuous nasal cannula. -we will follow up Cardiology recommendations Plan discussed with: Patient, Spouse, Other My Orders Orders - MAHSA RICH MD Procedure Category Date Status Time Sodium Chloride 0.9% PHA 08/15/25 In Process 16:00 Chest Xray 1 View XY 08/16/25 Resulted 06:00 * [employer] Clerk CONS 08/16/25 Transmitted Consult Date of Service: Aug 16, 2025 Billing Provider: MAHSA RICH MD Common Visit Codes: NOT BILLABLE MAHSA RICH MD Aug 16, 2025 15:44
--- NOTE | 2025-08-16 23:34 | DVHPN2 ---
Progress Note - Dictate Date Seen: Aug 16, 2025 Medical Necessity Reason Pt with a Central, PICC or Fol: No Subjective Patient seen and examined at bedside. Remains on supplemental oxygen Overnight events reviewed. vital signs Vital Sign Date Time Temp Pulse Resp B/P (MAP) Pulse Ox O2 Delivery O2 Flow Rate FiO2 08/16/25 22:00 85 99/68 08/16/25 21:00 98.5 18 96 98.5 08/16/25 20:00 Nasal Cannula* 3 32 Total Intake and Output 08/15/25 08/15/25 08/16/25 15:00 23:00 07:00 Intake Total 420 ml 1105 ml Output Total 850 ml Balance 420 ml 255 ml medications Current Medications Medications Dose Ordered Sig/Martha Route Start Time Stop Time Status Last Admin Dose Admin Nitroglycerin 0.4 mg Q5MINP PRN SL 08/10/25 14:00 Morphine Sulfate 2 mg Q30M PRN IV 08/10/25 14:00 Hold Ondansetron HCl 4 mg Q6HPRN PRN IV 08/10/25 14:00 Acetaminophen 650 mg Q4HP PRN PO 08/10/25 14:00 Finasteride 5 mg DAILY PO 08/11/25 10:00 08/16/25 10:00 5 MG Levothyroxine Sodium 50 mcg QAM PO 08/11/25 07:00 08/16/25 05:19 50 MCG Trazodone HCl 25 mg DAILY PO 08/11/25 10:00 08/16/25 10:00 25 MG Empaglifozin 10 mg DAILY PO 08/11/25 10:00 08/16/25 10:00 10 MG Melatonin 5 mg HS PO 08/13/25 00:45 08/14/25 22:41 5 MG Enoxaparin Sodium 80 mg BID SC 08/14/25 22:00 08/16/25 21:59 80 MG Metoprolol Tartrate 12.5 mg BID PO 08/14/25 22:00 08/16/25 22:00 12.5 MG objective Gen.: Patient lying in bed in no apparent distress. On supplemental oxygen. Head: Normocephalic, atraumatic. Eyes: EOMI/PERRLA. Ears: Normal hearing. Normal anatomy. Neck/trachea: Trachea midline, supple. Nose: Normal external anatomy. Mouth: Moist mucous membranes. Chest: Decreased air entry bilaterally. No wheezing or rhonchi. Cardiovascular: Positive S1, positive S2. Regular rate and rhythm. Abdomen: Positive bowel sounds in all 4 quadrants. Soft, non-tender, non- distended. : Deferred. Rectal: Deferred. Skin: Warm, dry. Intact. Extremities: 2+ radial pulses bilaterally. No lower extremity edema. Neuro: Awake, alert, oriented x3. No gross motor or sensory deficits. Cranial nerves II through XII intact. Gait not assessed. laboratory and microbiology Laboratory Tests 08/16/25 05:04 Test 08/16/25 05:04 Range/Units Serum Glucose 93 74-106 mg/dL Assessment/Plan Impression: Acute hypoxic respiratory failure Dependence on supplemental oxygen Pulmonary hypertension Pulmonary edema Pleural effusion Atelectasis Atrial fibrillation Overweight Events: Remains on supplemental oxygen, 4 LPM NC Taper O2 as tolerated CXR today reviewed, demonstrates small to medium left-sided pleural effusion. Peripheral interstitial edema. Overall correlate for volume overload. Possible retrocardiac opacification in the right lung base. Limited chest ultrasound demonstrated small left pleural effusion not amenable to thoracentesis. Continue incentive spirometry Continue diuresis to maintain euvolemia Monitor renal function Monitor electrolytes, supplement as necessary. Off dopamine Nephrology recs appreciated. Cardiology recs appreciated. Labs and imaging reviewed. Rest of plan as noted below. Plan: Supplemental oxygen Titrate to keep O2 sats above 92%. Taper O2 as tolerated. Incentive spirometry Follow up Cardiology recs Nephrology recs appreciated. Diurese to euvolemia Monitor renal function. Monitor electrolytes. Supplement as necessary. Monitor ins and outs. Recommend diet and lifestyle modifications for weight reduction DVT prophylaxis. Prognosis: Poor given patient's multiple co-morbidities. Rest of plan per hospitalist and other consultants. Thank you, Dr. Beatty, for allowing me to participate in this patient's care. Further recommendations will depend on the patient's clinical course. Please do not hesitate to contact me if you have any questions or concerns. This medical document was created using an electronic medical record system with [employer] system. Although these documentations are being carefully reviewed, there may still be some phonetic and typographical changes. The errors are purely typographical, due to imperfection on the software program, and do not reflect any compromise in the patient's medical care. Dietary Evaluation Review Comments: Nutrition Recommendation: 1) Ensure High Protein 240ml BID if PO intake <50% 2) Monitor PO intake, lab values, weight trend, and I/O Expected Outcomes/Goals: Intake to meet >75% estimated needs Lab values to improve FU 3-5 days Plan discussed with: Patient, Other (MAYNOR Driver) [facility] Aug 16, 2025 23:34
[2025-08-17 01:00] VITALS: BP 92/63; PULSE 82; RESP 17; TEMP 97.8; O2SAT 98
[2025-08-17 05:00] VITALS: BP 98/53; PULSE 91; RESP 16; TEMP 97.7; O2SAT 95
[2025-08-17 08:00] VITALS: PULSE 104
[2025-08-17 08:39] VITALS: BP 106/70; PULSE 87; RESP 17; TEMP 97.8; O2SAT 99
--- NOTE | 2025-08-17 10:13 | DVHPN2 ---
Progress Note - Dictate Date Seen: Aug 17, 2025 Medical Necessity Reason Pt with a Central, PICC or Fol: No Subjective Patient states that he feels well currently. Denies cardiopulmonary complaints this morning. vital signs Vital Sign Date Time Temp Pulse Resp B/P (MAP) Pulse Ox O2 Delivery O2 Flow Rate FiO2 08/17/25 09:39 87 106/70 08/17/25 08:39 97.8 17 99 97.8 08/17/25 08:15 Nasal Cannula* 3 32 Total Intake and Output 08/16/25 08/16/25 08/17/25 15:00 23:00 07:00 Intake Total 800 ml 220 ml Output Total 800 ml 240 ml Balance 0 ml -20 ml medications Current Medications Medications Dose Ordered Sig/Martha Route Start Time Stop Time Status Last Admin Dose Admin Nitroglycerin 0.4 mg Q5MINP PRN SL 08/10/25 14:00 Morphine Sulfate 2 mg Q30M PRN IV 08/10/25 14:00 Hold Ondansetron HCl 4 mg Q6HPRN PRN IV 08/10/25 14:00 Acetaminophen 650 mg Q4HP PRN PO 08/10/25 14:00 Finasteride 5 mg DAILY PO 08/11/25 10:00 08/17/25 09:38 5 MG Levothyroxine Sodium 50 mcg QAM PO 08/11/25 07:00 08/17/25 06:17 50 MCG Trazodone HCl 25 mg DAILY PO 08/11/25 10:00 08/16/25 10:00 25 MG Empaglifozin 10 mg DAILY PO 08/11/25 10:00 08/17/25 09:38 10 MG Melatonin 5 mg HS PO 08/13/25 00:45 08/14/25 22:41 5 MG Enoxaparin Sodium 80 mg BID SC 08/14/25 22:00 08/16/25 21:59 80 MG Metoprolol Tartrate 12.5 mg BID PO 08/14/25 22:00 08/17/25 09:39 12.5 MG objective Gen: nad heent: nc/at, mmm lungs: cta anteriorly cvs: no rub abd: soft, bowel sounds audible ext: no edema skin: no rash neuro: alert and oriented laboratory and microbiology Laboratory Tests 08/16/25 05:04 Test 08/16/25 05:04 Range/Units Serum Glucose 93 74-106 mg/dL Assessment/Plan Problem List/Assessment/Plan Acute kidney injury superimposed Chronic Kidney Disease - improving Acute respiratory failure, O2 supplement Acute on chronic systolic Congestive heart failure AFib with RVR Diabetes mellitus type 2 Hypotension Thrombocytopenia Recommendations - HARLEY resolving, metabolic and volume status acceptable today. - clinically stable for discharge from Nephrology perspective. Dietary Evaluation Review Comments: Nutrition Recommendation: 1) Ensure High Protein 240ml BID if PO intake <50% 2) Monitor PO intake, lab values, weight trend, and I/O Expected Outcomes/Goals: Intake to meet >75% estimated needs Lab values to improve FU 3-5 days Plan discussed with: Patient MARIA TERESA ROBERTS MD Aug 17, 2025 10:13
[2025-08-17 11:54] VITALS: BP 106/70; PULSE 87; TEMP 36.6
[2025-08-17 13:00] VITALS: BP 110/66; PULSE 99; RESP 16; TEMP 98.1; O2SAT 96
--- NOTE | 2025-08-17 15:22 | DVHDS2 ---
Discharge Summary Date of Admission Aug 10, 2025 at 13:52 Date of Discharge: Aug 13, 2025 Labs/Diagnostic Data: Laboratory Results Test 08/16/25 05:04 08/14/25 17:00 08/14/25 15:21 08/14/25 13:25 White Blood Count 5.5 10^3/uL (4.4-10.8) Red Blood Count 4.63 10^6/uL (4.5-5.90) Hemoglobin 13.7 g/dL (13.5-17.5) Hematocrit 42.4 % (41.0-53.0) Mean Corpuscular Volume 91.5 fL (80.0-100.0) Mean Corpuscular Hemoglobin 29.5 pg (28.0-32.0) Mean Corpuscular Hemoglobin Concent 32.2 g/dL (32.0-36.0) Red Cell Distribution Width 15.5 % (11.8-14.3) Platelet Count 110 10^3/uL (140-450) Mean Platelet Volume 11.6 fL (6.9-10.8) Neutrophils (%) (Auto) 63.3 % (37.0-80.0) Lymphocytes (%) (Auto) 14.3 % (10.0-50.0) Monocytes (%) (Auto) 9.5 % (0.0-12.0) Eosinophils (%) (Auto) 11.9 % (0.0-7.0) Basophils (%) (Auto) 1.0 % (0.0-2.0) Neutrophils # (Auto) 3.5 10 ^3/uL (1.6-8.6) Lymphocytes # (Auto) 0.8 10 ^3/uL (0.4-5.4) Monocytes # (Auto) 0.5 10 ^3/uL (0-1.3) Eosinophils # (Auto) 0.7 10 ^3/uL (0-0.8) Basophils # (Auto) 0.1 10 ^3/uL (0-0.2) Nucleated Red Blood Cells 0.0 % Sodium Level 141 mmol/L (136-145) Potassium Level 4.6 mmol/L (3.5-5.1) Chloride Level 102 mmol/L (98-107) Carbon Dioxide Level 30 mmol/L (20-31) Anion Gap 9 (5-15) Blood Urea Nitrogen 42 mg/dL (9-23) Creatinine 1.41 mg/dL (0.700-1.30) Glomerular Filtration Rate Calc 50 mL/min (>90) BUN/Creatinine Ratio 29.8 (10.0-20.0) Serum Glucose 93 mg/dL (74-106) Calcium Level 9.2 mg/dL (8.7-10.4) Magnesium Level 2.4 mg/dL (1.6-2.6) Urine Color Light-yellow (Yellow) Urine Clarity Clear (Clear) Urine pH 5.0 (5.0-9.0) Urine Specific [place] 1.012 (1.001-1.035) Urine Protein Negative (Negative) Urine Ketones Negative (Negative) Urine Blood Negative /uL (Negative) Urine Nitrite Negative (Negative) Urine Bilirubin Negative (Negative) Urine Urobilinogen Normal mg/dL (Negative) Urine Leukocyte Esterase Negative /uL (Negative) Urine RBC <1 /hpf (0 - 3) Urine Microscopic WBC 2 /HPF (0-3) Urine Squamous Epithelial Cells None seen /hpf (<5) Urine Bacteria None seen /hpf (None Seen) Urine Hyaline Casts Few /lpf (0 - 2) Urine Creatinine 85.33 mg/dL (30.0-125.0) Urine Protein/Creatinine Ratio 0.14 Urine Sodium 31 mmol/L (40-220) Urine Glucose 2+ mg/dL (Normal) Urine Total Protein 11.8 mg/dL (1-14) Vitamin D 25-Hydroxy 52.6 ng/mL (30.0-100) Phosphorus Level 4.2 mg/dL (2.4-5.1) B-Type Natriuretic Peptide 1215.90 pg/mL (0-100) Parathyroid Hormone (Intact) 266.1 pg/mL (18.4-80.1) Test 08/13/25 15:00 08/11/25 04:43 08/10/25 14:36 08/10/25 14:20 Total Bilirubin 0.7 mg/dL (0.2-1.0) Aspartate Amino Transferase (AST) 24 U/L (13-40) Alanine Aminotransferase (ALT) 28 U/L (7-40) Alkaline Phosphatase 62 U/L (46-116) Total Protein 7.2 g/dL (5.7-8.2) Albumin 4.1 g/dL (3.2-4.8) Differential Total Cells Counted 100.0 (100) Neutrophils % (Manual) 49 (37.0-80.0) Band Neutrophils % (Manual) 0 Lymphocytes % (Manual) 25 (10.0-50.0) Monocytes % (Manual) 2 (0-12) Eosinophils % (Manual) 24 (0-7) Basophils % (Manual) 0 (0.0-2.0) Metamyelocytes % (manual) 0 Myelocytes % (Manual) 0 Promyelocytes % (Manual) 0 Blast Cells % (Manual) 0 Reactive Lymphocytes 0 Platelet Estimate Decreased Ovalocytes Few Prothrombin Time 14.0 sec (9.3-11.8) Prothrombin Time INR 1.36 (0.9-1.15) Activated Partial Thromboplast Time 36.4 SEC (24.5-34.5) Troponin I High Sensitivity 25 ng/L (</=54) Urine Mucus Few (None Seen) Test 08/10/25 11:40 Large Platelets Few Poikilocytosis (manual) Slight Other Laboratory Tests 08/16/25 05:04 Brief Hx & Hospital Course: 79-year-old male with a known history of nonischemic cardiomyopathy, pulmonary hypertension, who initially presented to the hospital with increasing shortness a breath found to have acute on chronic congestive heart failure exacerbation with systolic dysfunction with the EF of around 30-35%. Patient was given IV diuretics and also on Aldactone. Patient hospital course was eventful for worsening kidney functioning eventually requiring nephrology consultation with a gentle IV hydration with a dopamine drip. Patient's kidney functions improved. Patient was recommended to restart Lasix only for now, keep holding Aldactone. Patient is also hospital course was eventful for atrial flutter with a RVR was on therapeutic Lovenox which was switched to Eliquis upon discharge. Patient was cleared by Nephrology and Cardiology to be discharged with a close follow up as an outpatient with a repeat BMP next few days. Patient's was updated regarding current plan of care. Also risk/benefits and alternatives of Eliquis including life-threatening bleeding disability explained to the patient and patient's at bedside in detail they understand verbalized understanding and agreeable to plan. Patient's requesting telemarketing sales representative Dr. Daly as an outpatient. Vitamin with the Dr. Daly with a in one week or so. Home health home safety evaluation upon discharge. Condition at Discharge: Stable Final Diagnosis/Problems List 1. Acute on chronic congestive heart failure exacerbation with systolic dysfunction 2. Cardiomyopathy with the EF of 35% 3. Acute kidney injury worsening, keep holding Lasix and Aldactone 4. Pulmonary hypertension 5. Bilateral leg edema 6. Agitation 7. Acute hypoxic respiratory failure secondary to acute CHF exacerbation and bilateral atelectasis 8. Atrial flutter, currently on therapeutic Lovenox Discharge Disposition: Home with Health Services SNF Discharge Will this Physician continue t: No Discharge Instruct/Medications Diet: Consistent carbohydrate, Cardiac 2g Na,low cholest Diet comment: Oral fluid restriction to 1200 mL per 24 hours due to heart failure Activity: No Restrictions, As Tolerated Activity comment: With the assistance Follow Up/Referral: Primary care physician next week and with Dr. Daly telemarketing sales representative after two weeks for management of your heart failure and cardiomyopathy Medications: To take all heart medications as prescribed and other home medications per discharge med reconciliation list. New Medications: Apixaban Base (Eliquis) 5 Mg Tab 5 MG PO BID for 30 Days, #60 TAB Empagliflozin (Jardiance) 10 Mg Tab 10 MG PO QPM, #60 TAB Furosemide (Furosemide) 40 Mg Tab 1 TAB PO DAILY, #30 TAB 5 Refills Metoprolol Tartrate (Lopressor) 25 Mg Tb 12.5 MG PO BID, #60 TAB Continued Medications: Cholecalciferol (Vitamin D3) 5,000 Unit Cap 5000 UNIT PO DAILY for SUPPLEMENT, CAP Finasteride (Finasteride) 5 Mg Tab 5 MG PO DAILY for BPH, MG Levothyroxine Sodium (Levothyroxine Sodium) 50 Mcg Tab 50 MCG PO QAM for LOW THYROID for 30 Days, MCG Patients Own Medication (Patients Own Medication) . for WEIGHT LOSS PTS OWN MED-OBTAIN FROM PT AND SEND TO RX DRUG: FREQ: RX# EXP: DATE DISP: TECH: RPH: Simvastatin (Simvastatin) 5 Mg Tab 5 MG PO QHSP PRN for CHOLESTEROL, TAB Trazodone HCl (Trazodone Hydrochloride) 50 Mg Tab 25 MG PO DAILY for DEPRESSION, TAB Discontinued Medications: Alpha Tocopheryl Acid Succinat (Vitamin E) 400 Unit Tab 400 UNIT PO DAILY for SUPPLEMENT, TAB Amlodipine Besylate (Amlodipine Besylate) 5 Mg Tab 10 MG PO DAILY for HTN, MG Lisinopril (Lisinopril) 40 Mg Tab 1 TAB PO DAILY for HTN, #30 TAB 5 Refills Scheduled Apixaban Base (Eliquis), 5 MG PO BID Cholecalciferol (Vitamin D3), 5,000 UNIT PO DAILY, (Reported) Empagliflozin (Jardiance), 10 MG PO QPM Finasteride (Finasteride), 5 MG PO DAILY, (Reported) Furosemide (Furosemide), 1 TAB PO DAILY Levothyroxine Sodium (Levothyroxine Sodium), 50 MCG PO QAM, (Reported) Metoprolol Tartrate (Lopressor), 12.5 MG PO BID Trazodone HCl (Trazodone Hydrochloride), 25 MG PO DAILY, (Reported) Scheduled PRN Simvastatin (Simvastatin), 5 MG PO QHSP PRN for CHOLESTEROL, (Reported) Miscellaneous Medications Patients Own Medication (Patients Own Medication), (Reported) Discontinued Medications Alpha Tocopheryl Acid Succinat (Vitamin E), 400 UNIT PO DAILY, (Reported) Amlodipine Besylate (Amlodipine Besylate), 10 MG PO DAILY, (Reported) Lisinopril (Lisinopril), 1 TAB PO DAILY, (Reported) Discharge Statement: "Patient was advised to return to the ER or call 911 if any headaches, dizziness, shortness of breath, chest pain, abdominal pain, bleeding, fevers, or worsening of medical condition. Patient was counseled about treatment plan, medications, possible side effects, patientverbalized understanding. All questions were answered to the best of my ability. This discharge took greater then 30 minutes in planning, reviewing documentation, counseling the patient, and discussing with other team members." ASSESSMENT ASSESSMENT Assessment Acute on chronic congestive heart failure with a diastolic dysfunction, congestive cardiomyopathy EF 35%, chronic kidney disease stage 2, BPH Date of Service: Aug 17, 2025 Billing Provider: MAHSA RICH MD Common Visit Codes: NOT BILLABLE MAHSA RICH MD Aug 17, 2025 15:22
[2025-08-17] MEDS ORDERED: MET25T PO (15:24)
[2025-08-17] MEDS ORDERED: APIX5TAB PO (15:24)
--- NOTE | 2025-08-17 23:24 | DVHPN2 ---
Progress Note - Dictate Date Seen: Aug 17, 2025 Medical Necessity Reason Pt with a Central, PICC or Fol: No Subjective Patient seen and examined at bedside. Remains on supplemental oxygen Overnight events reviewed. vital signs Vital Sign Date Time Temp Pulse Resp B/P (MAP) Pulse Ox O2 Delivery O2 Flow Rate FiO2 08/17/25 13:00 98.1 99 16 110/66 (81) 96 98.1 08/17/25 08:15 Nasal Cannula* 3 32 Total Intake and Output 08/16/25 08/16/25 08/17/25 15:00 23:00 07:00 Intake Total 800 ml 220 ml Output Total 800 ml 240 ml Balance 0 ml -20 ml objective Gen.: Patient lying in bed in no apparent distress. On supplemental oxygen. Head: Normocephalic, atraumatic. Eyes: EOMI/PERRLA. Ears: Normal hearing. Normal anatomy. Neck/trachea: Trachea midline, supple. Nose: Normal external anatomy. Mouth: Moist mucous membranes. Chest: Decreased air entry bilaterally. No wheezing or rhonchi. Cardiovascular: Positive S1, positive S2. Regular rate and rhythm. Abdomen: Positive bowel sounds in all 4 quadrants. Soft, non-tender, non- distended. : Deferred. Rectal: Deferred. Skin: Warm, dry. Intact. Extremities: 2+ radial pulses bilaterally. No lower extremity edema. Neuro: Awake, alert, oriented x3. No gross motor or sensory deficits. Cranial nerves II through XII intact. Gait not assessed. laboratory and microbiology Laboratory Tests 08/16/25 05:04 Test 08/16/25 05:04 Range/Units Serum Glucose 93 74-106 mg/dL Assessment/Plan Impression: Acute hypoxic respiratory failure Dependence on supplemental oxygen Pulmonary hypertension Pulmonary edema Pleural effusion Atelectasis Atrial fibrillation Overweight Events: Remains on supplemental oxygen On 4 LPM -->2 LPM NC Taper O2 as tolerated Improving O2 requirements CXR on 08/16/25 demonstrates small to medium left-sided pleural effusion. Peripheral interstitial edema. Overall correlate for volume overload. Possible retrocardiac opacification in the right lung base. Limited chest ultrasound demonstrated small left pleural effusion not amenable to thoracentesis. Continue incentive spirometry Continue diuresis to maintain euvolemia Monitor renal function Monitor electrolytes, supplement as necessary. Off dopamine Nephrology recs appreciated. Cardiology recs appreciated. Disposition per hospitalist. Labs and imaging reviewed. Rest of plan as noted below. Plan: Supplemental oxygen Titrate to keep O2 sats above 92%. Taper O2 as tolerated. Incentive spirometry Follow up Cardiology recs Nephrology recs appreciated. Diurese to euvolemia Monitor renal function. Monitor electrolytes. Supplement as necessary. Monitor ins and outs. Recommend diet and lifestyle modifications for weight reduction DVT prophylaxis. Prognosis: Poor given patient's multiple co-morbidities. Rest of plan per hospitalist and other consultants. Thank you, Dr. Beatty, for allowing me to participate in this patient's care. Further recommendations will depend on the patient's clinical course. Please do not hesitate to contact me if you have any questions or concerns. This medical document was created using an electronic medical record system with [employer] dictation system. Although these documentations are being carefully reviewed, there may still be some phonetic and typographical changes. The errors are purely typographical, due to imperfection on the software program, and do not reflect any compromise in the patient's medical care. Dietary Evaluation Review Comments: Nutrition Recommendation: 1) Ensure High Protein 240ml BID if PO intake <50% 2) Monitor PO intake, lab values, weight trend, and I/O Expected Outcomes/Goals: Intake to meet >75% estimated needs Lab values to improve FU 3-5 days Plan discussed with: Patient, Other (MAYNOR Salcedo) [facility] Aug 17, 2025 23:24
== END 2025-08-17 15:56 | disposition home health service (06) | DRG 291 ==
LOC: ER 10:41 → OVERFLOW 13:52 → TELE-CENTR 22:38
PROVIDERS: ADMIT Internal Medicine; ATTEND Internal Medicine
DX: I13.0 Hypertensive heart and chronic kidney disease with heart failure and stage 1 through stage 4 chronic kidney disease, or unspecified chronic kidney disease (principal); I50.23 Acute on chronic systolic (congestive) heart failure; J96.01 Acute respiratory failure with hypoxia; N17.0 Acute kidney failure with tubular necrosis; I48.92 Unspecified atrial flutter; D69.6 Thrombocytopenia, unspecified; I27.20 Pulmonary hypertension, unspecified; E11.22 Type 2 diabetes mellitus with diabetic chronic kidney disease; E66.9 Obesity, unspecified; J98.11 Atelectasis; I48.91 Unspecified atrial fibrillation; I42.0 Dilated cardiomyopathy; N18.2 Chronic kidney disease, stage 2 (mild); N40.0 Benign prostatic hyperplasia without lower urinary tract symptoms; I25.2 Old myocardial infarction; Z82.49 Family history of ischemic heart disease and other diseases of the circulatory system; Z88.5 Allergy status to narcotic agent; Z88.0 Allergy status to penicillin; Z83.3 Family history of diabetes mellitus; Z99.81 Dependence on supplemental oxygen; Z68.27 Body mass index [BMI] 27.0-27.9, adult
CPT/HCPCS: 36415; 71045; 76775; 80048; 80053; 81001; 82306; 82570; 83735; 83880; 83970; 84100; 84156; 84300; 84484; 85007; 85025; 85027; 85610; 85730; 93005; 93306; 93970; 97163; 99291; 99292; G0378